=== PATIENT | female | born 1985 | race African-American/Black ===

== ENCOUNTER 2017-03-09 09:41 | Emergency (ER) | payer OTHER ==
[2017-03-09 10:25] LABS: URINE HCG POC HCG NEGATIVE (Negative)
[2017-03-09] MEDS: predniSONE 10 MG TABLET PO (10:35)
[2017-03-09 11:18] LABS: AGAP ISTAT 12 mmol/L (6-14); BUN ISTAT 14 mg/dL (8-26); CHLORIDE ISTAT 106 mmol/L (98-110); CREATININE ISTAT 1.1 mg/dL (0.5-1.4); GLUCOSE ISTAT 97 mg/dL (70-99); HEMATOCRIT ISTAT 39 % (36-40); HEMOGLOBIN ISTAT 13.3 g/dL (12-15); ION CA ISTAT 0.97 mmol/L (1.13-1.32); POTASSIUM ISTAT 5.1 mmol/L (3.5-5.0); SODIUM ISTAT 134 mmol/L (135-145); TOT CO2 ISTAT 22 mmol/L (23-32)
== END 2017-03-09 11:57 | disposition home or self-care (01) ==
LOC: ER 09:41
DX: M32.9 Systemic lupus erythematosus, unspecified (principal); E83.51 Hypocalcemia; M06.9 Rheumatoid arthritis, unspecified; Z98.890 Other specified postprocedural states
CPT/HCPCS: 36415; 80047; 81025; 85014; 85018; 99283-25; J7512

== ENCOUNTER 2017-12-07 15:50 | Emergency (ER) | payer OTHER ==
[~2017-12-07] VITALS: Ht 157.5 cm; Wt 81.6 kg
[~2017-12-07 15:50] MED LIST: CIPR500T94 PO; PRED-220 PO
[2017-12-07 16:34] VITALS: BP 126/83
--- NOTE | 2017-12-07 16:37 | PHYS DOC ---
Past Medical History Past Medical History: Arthritis, Other Additional Past Medical Histor: Lupus; RA Past Surgical History: , Other Additional Past Surgical Histo: laparoscopic surg nos, 2006 Alcohol Use: Occasionally Drug Use: None Adult General Chief Complaint Chief Complaint: SORE THROAT HPI HPI Patient is a 31 year old female who presents with patient states she awoke today with a sore throat and was hard to swallow. Patient denies fever or unusual body aches. Patient denies any recent illness or respiratory illness. Patient takes hydrochloride Antonio and naproxen daily for her lupus. Patient states she has no known drug allergies. Review of Systems Review of Systems Constitutional: Denies fever or chills [] Eyes: Denies change in visual acuity, redness, or eye pain [] HENT: Denies nasal congestion. Sore throat [] Respiratory: Denies cough or shortness of breath [] Cardiovascular: No additional information not addressed in HPI [] GI: Denies abdominal pain, nausea, vomiting, bloody stools or diarrhea [] : Denies dysuria or hematuria [] Musculoskeletal: Denies back pain or joint pain [] Integument: Denies rash or skin lesions [] Neurologic: Denies headache, focal weakness or sensory changes [] Endocrine: Denies polyuria or polydipsia [] All other systems were reviewed and found to be within normal limits, except as documented in this note. Allergies Allergies Allergies Coded Allergies Type Severity Reaction Last Updated Verified No Known Drug Allergies 05/05/13 No Physical Exam Physical Exam Constitutional: Well developed, well nourished, no acute distress, non-toxic appearance. [] HENT: Normocephalic, atraumatic, bilateral external ears normal, oropharynx moist, oral exudates present, nose normal. [] Eyes: PERRLA, EOMI, conjunctiva normal, no discharge. [] Neck: Normal range of motion, no tenderness, supple, no stridor. [] Cardiovascular:Heart rate regular rhythm, no murmur [] Lungs & Thorax: Bilateral breath sounds clear to auscultation [] Abdomen: Bowel sounds normal, soft, no tenderness, no masses, no pulsatile masses. [] Skin: Warm, dry, no erythema, no rash. [] Back: No tenderness, no CVA tenderness. [] Extremities: No tenderness, no cyanosis, no clubbing, ROM intact, no edema. [] Neurologic: Alert and oriented X 3, normal motor function, normal sensory function, no focal deficits noted. [] Psychologic: Affect normal, judgement normal, mood normal. [] EKG EKG [] Radiology/Procedures Radiology/Procedures [] Course & Med Decision Making Course & Med Decision Making Patient is a 31 year old female who presents with patient states she awoke today with a sore throat and was hard to swallow. Patient denies fever or unusual body aches. Patient denies any recent illness or respiratory illness. Patient takes hydrochloroquine and naproxen daily for her lupus. Patient states she has no known drug allergies. She denies fever, shortness of air, chest pain , nausea, vomiting, diarrhea, rhinorrhea, cough or ear pain. Patient is alert and oriented. Skin is pink warm and dry. Lungs are clear to auscultation all lobes. Heart rate regular and no murmur. Patient rates her pain 8 out of 10. Upon examination patient's throat is red and she has a white patch on her left tonsil. There is only slight swelling to her left tonsil. There are no palpable lymph nodes or masses felt in her neck. Bilateral tympanic membranes are pearly white. Rapid strep is negative. Sense I have seen the white patch on her left tonsil and her left tonsil is inflamed, I am still going to treat the patient for Strep. The Strep culture is sent. Dragon Disclaimer Dragon Disclaimer This electronic medical record was generated, in whole or in part, using a voice recognition dictation system. Departure Departure Impression: Primary Impression: Throat pain in adult Disposition: 01 HOME, SELF-CARE Condition: STABLE Referrals: CALLIE CADENA MD (PCP) Patient Instructions: Strep Throat Additional Instructions: Follow up with your primary care if you are not getting better. Scripts Amoxicillin (AMOXICILLIN) 500 Mg Capsule 1 CAP PO BID, #20 CAP Prov: DERRICK GARCIA RN PICU 12/07/17 DERRICK GARCIA RN PICU Dec 07, 2017 16:37
[2017-12-07] MEDS ORDERED: AMOX500C PO (16:48)
== END 2017-12-07 16:50 | disposition home or self-care (01) ==
LOC: ER 15:50
DX: R07.0 Pain in throat (principal)
CPT/HCPCS: 87070; 87880; 99284

== ENCOUNTER 2018-01-03 12:45 | Emergency (ER) | payer OTHER ==
[~2018-01-03] VITALS: Ht 157.5 cm; Wt 83.5 kg
[~2018-01-03 12:45] MED LIST changes: +AMOX500C PO
[2018-01-03 13:26] LABS: BILIRUBIN,URINE NEGATIVE (NEG); CLARITY,URINE CLOUDY; COLOR,URINE RED; NITRITE,URINE NEGATIVE (NEG); PH,URINE 5.5; PROTEIN,URINE 100 mg/dL (NEG-TRACE); UROBILINOGEN,URINE 0.2 mg/dL (0.2 mg/dL)
[2018-01-03 13:32] LABS: SQUAMOUS EPITHELIAL CELL,UR MANY /LPF
[2018-01-03 13:33] LABS: BACTERIA,URINE MODERATE /HPF (0-FEW); RBC,URINE >40 /HPF (0-2)
--- NOTE | 2018-01-03 14:47 | RAD ---
Transabdominal ultrasound the pelvis. HISTORY: Pelvic pain to the left. Transabdominal ultrasound was performed to evaluate the pelvis. The bladder was not well-distended. Uterus measured 8.67 x 4.8 x 5.3 cm and was normal in appearance. The endometrium was not thickened measuring 7 mm. The right ovary is at the posterior lateral margin of the uterus measuring 4.2 x 2 x 2 cm. There is a 3 x 1.7 cm cyst or follicle in the right ovary. Left ovary was normal measuring 2.9 x 1.7 x 2.1 cm. There is flow in both ovaries with color imaging and Doppler. IMPRESSION: 1. Right ovarian cyst or follicle. 2. Essentially normal ultrasound of the pelvis. Electronically signed by: Robert Garcia MD (01/03/2018 2:44 PM) [facility]
[2018-01-03 15:26] LABS: BASO % 1 % (0-3); EOS # 0.1 x10^3/uL (0.0-0.7); EOS % 2 % (0-3); HEMATOCRIT 36.7 % (36.0-47.0); HEMOGLOBIN 12.1 g/dL (12.0-15.5); LYMPH # 1.4 x10^3/uL (1.0-4.8); LYMPH % 32 % (24-48); MEAN CORPUSCULAR HEMOGLOBIN 25 pg (25-35); MEAN CORPUSCULAR HGB CONC 33 g/dL (31-37); MEAN CORPUSCULAR VOLUME 76 fL (79-100); MONO # 0.2 x10^3/uL (0.0-1.1); MONO % 4 % (0-9); NEUT # 2.7 x10^3uL (1.8-7.7); NEUT % 62 % (31-73); PLATELET COUNT 260 x10^3/uL (140-400); RED BLOOD COUNT 4.83 x10^6/uL (3.50-5.40); RED CELL DISTRIBUTION WIDTH 17.1 % (11.5-14.5); WHITE BLOOD COUNT 4.4 x10^3/uL (4.0-11.0)
[2018-01-03 15:37] LABS: GFR 76.8
[2018-01-03 15:42] LABS: ALBUMIN 3.8 g/dL (3.4-5.0); ALBUMIN/GLOBULIN RATIO 0.8 (1.0-1.7); TOTAL BILIRUBIN 0.6 mg/dL (0.2-1.0); TOTAL PROTEIN 8.8 g/dL (6.4-8.2)
[2018-01-03 16:04] VITALS: BP 130/76
[2018-01-03] MEDS ORDERED: NITR100C62 PO (16:10)
--- NOTE | 2018-01-03 16:11 | PHYS DOC ---
Past Medical History Past Medical History: Arthritis, Other Additional Past Medical Histor: Lupus; RA, Stomach ulcer, hernia Past Surgical History: , Other Additional Past Surgical Histo: laparoscopic surg nos, 2006 Alcohol Use: Occasionally Drug Use: None Adult General Chief Complaint Chief Complaint: ABDOMINAL PAIN [facility] HPI Patient is a 32 year old female who presents with dysuria and blood in her urine. The patient is also worried that she may be . She does have history of lupus and has had several miscarriages. She has been having some mild pelvic pain. She denies any exposure to STD. She denies abdominal pain or fever. She denies nausea or vomiting. Review of Systems Review of Systems Constitutional: Denies fever or chills [] Eyes: Denies change in visual acuity, redness, or eye pain [] HENT: Denies nasal congestion or sore throat [] Respiratory: Denies cough or shortness of breath [] Cardiovascular: No additional information not addressed in HPI [] GI: Denies abdominal pain, nausea, vomiting, bloody stools or diarrhea [] : See history of present illness Musculoskeletal: Denies back pain or joint pain [] Integument: Denies rash or skin lesions [] Neurologic: Denies headache, focal weakness or sensory changes [] Endocrine: Denies polyuria or polydipsia [] All other systems were reviewed and found to be within normal limits, except as documented in this note. Allergies Allergies Allergies Coded Allergies Type Severity Reaction Last Updated Verified No Known Drug Allergies 05/05/13 No Physical Exam Physical Exam Constitutional: Well developed, well nourished, no acute distress, non-toxic appearance. [] Cardiovascular:Heart rate regular rhythm, no murmur [] Lungs & Thorax: Bilateral breath sounds clear to auscultation [] Abdomen: Bowel sounds normal, soft, mild suprapubic tenderness, no masses, no pulsatile masses. [] Skin: Warm, dry, no erythema, no rash. [] Back: No tenderness, no CVA tenderness. [] Extremities: No tenderness, no cyanosis, no clubbing, ROM intact, no edema. [] Neurologic: Alert and oriented X 3, normal motor function, normal sensory function, no focal deficits noted. [] Psychologic: Affect normal, judgement normal, mood normal. [] Current Patient Data Vital Signs Vital Signs Date Time Temp Pulse Resp B/P (MAP) Pulse Ox O2 Delivery O2 Flow Rate FiO2 01/03/18 16:04 98.2 72 14 130/76 (94) 98 Room Air 98.2 Lab Values Laboratory Tests Test 01/03/18 12:55 01/03/18 13:07 01/03/18 15:15 Urine Collection Type Unknown Urine Color Red Urine Clarity Cloudy Urine pH 5.5 Urine Specific [place] 1.020 Urine Protein 100 mg/dL (NEG-TRACE) Urine Glucose (UA) Negative mg/dL (NEG) Urine Ketones (Stick) Trace mg/dL (NEG) Urine Blood Large (NEG) Urine Nitrite Negative (NEG) Urine Bilirubin Negative (NEG) Urine Urobilinogen Dipstick 0.2 mg/dL (0.2 mg/dL) Urine Leukocyte Esterase Small (NEG) Urine RBC >40 /HPF (0-2) Urine WBC 5-10 /HPF (0-4) Urine Squamous Epithelial Cells Many /LPF Urine Bacteria Moderate /HPF (0-FEW) POC Urine HCG, Qualitative Hcg positive (Negative) White Blood Count 4.4 x10^3/uL (4.0-11.0) Red Blood Count 4.83 x10^6/uL (3.50-5.40) Hemoglobin 12.1 g/dL (12.0-15.5) Hematocrit 36.7 % (36.0-47.0) Mean Corpuscular Volume 76 fL (79-100) L Mean Corpuscular Hemoglobin 25 pg (25-35) Mean Corpuscular Hemoglobin Concent 33 g/dL (31-37) Red Cell Distribution Width 17.1 % (11.5-14.5) H Platelet Count 260 x10^3/uL (140-400) Neutrophils (%) (Auto) 62 % (31-73) Lymphocytes (%) (Auto) 32 % (24-48) Monocytes (%) (Auto) 4 % (0-9) Eosinophils (%) (Auto) 2 % (0-3) Basophils (%) (Auto) 1 % (0-3) Neutrophils # (Auto) 2.7 x10^3uL (1.8-7.7) Lymphocytes # (Auto) 1.4 x10^3/uL (1.0-4.8) Monocytes # (Auto) 0.2 x10^3/uL (0.0-1.1) Eosinophils # (Auto) 0.1 x10^3/uL (0.0-0.7) Basophils # (Auto) 0.0 x10^3/uL (0.0-0.2) Maternal Serum HCG Beta Subunit 81 mIU/mL (0-5) H Sodium Level 136 mmol/L (136-145) Potassium Level 4.0 mmol/L (3.5-5.1) Chloride Level 100 mmol/L (98-107) Carbon Dioxide Level 22 mmol/L (21-32) Anion Gap 14 (6-14) Blood Urea Nitrogen 11 mg/dL (7-20) Creatinine 1.0 mg/dL (0.6-1.0) Estimated GFR (Cockcroft-Gault) 76.8 BUN/Creatinine Ratio 11 (6-20) Glucose Level 67 mg/dL (70-99) L Calcium Level 9.0 mg/dL (8.5-10.1) Total Bilirubin 0.6 mg/dL (0.2-1.0) Aspartate Amino Transferase (AST) 15 U/L (15-37) Alanine Aminotransferase (ALT) 10 U/L (14-59) L Alkaline Phosphatase 82 U/L (46-116) Total Protein 8.8 g/dL (6.4-8.2) H Albumin 3.8 g/dL (3.4-5.0) Albumin/Globulin Ratio 0.8 (1.0-1.7) L Laboratory Tests 01/03/18 15:15 Laboratory Tests 01/03/18 15:15 EKG EKG [] Radiology/Procedures Radiology/Procedures []PATIENT: [facility] LACCOUNT: [id number]#: [id number] : 1985 LOCATION: ER AGE: 32 SEX: F EXAM STATUS: REG ER ORD. PHYSICIAN: EMILY LI APRN REASON: pain to left PROCEDURE: PELVIS ULTRASOUND Transabdominal ultrasound the pelvis. HISTORY: Pelvic pain to the left. Transabdominal ultrasound was performed to evaluate the pelvis. The bladder was not well-distended. Uterus measured 8.67 x 4.8 x 5.3 cm and was normal in appearance. The endometrium was not thickened measuring 7 mm. The right ovary is at the posterior lateral margin of the uterus measuring 4.2 x 2 x 2 cm. There is a 3 x 1.7 cm cyst or follicle in the right ovary. Left ovary was normal measuring 2.9 x 1.7 x 2.1 cm. There is flow in both ovaries with color imaging and Doppler. IMPRESSION: 1. Right ovarian cyst or follicle. 2. Essentially normal ultrasound of the pelvis. Electronically signed by: Robert Garcia MD (01/03/2018 2:44 PM) [facility] DICTATED and SIGNED BY: ROBERT GARCIA MD DATE: 01/03/18 1439 Course & Med Decision Making Course & Med Decision Making Pertinent Labs and Imaging studies reviewed. (See chart for details) The patient's urine dip is positive for . Her beta Quant though is very low at 50. This would mean she has an incredibly new . No abnormality was found on ultrasound. She is to follow-up with obstetrics for further evaluation and serial testing. She is in agreement with this plan. She has been put on an antibiotic for a UTI. Dragon Disclaimer Dragon Disclaimer This electronic medical record was generated, in whole or in part, using a voice recognition dictation system. Departure Departure Impression: Primary Impression: Urinary tract infection Additional Impression: Disposition: 01 HOME, SELF-CARE Condition: STABLE Referrals: CALLIE CADENA MD (PCP) Patient Instructions: - First Trimester, [id number], Urinary Tract Infection Additional Instructions: Take the antibiotic as directed. Follow-up with obstetrics for further evaluation of your positive test. Scripts Nitrofurantoin Monohyd/M-Cryst (MACROBID 100 MG CAPSULE) 100 Mg Capsule 1 CAP PO BID for infection, #14 CAP Prov: EMILY LI APRN 01/03/18 Problem Qualifiers EMILY LI APRN Jan 03, 2018 16:11
== END 2018-01-03 16:17 | disposition home or self-care (01) ==
LOC: ER 12:45
DX: Z33.1 Pregnant state, incidental (principal); N39.0 Urinary tract infection, site not specified; Z98.890 Other specified postprocedural states
CPT/HCPCS: 36415; 76856; 80053; 81001; 81025; 84702; 85025; 87086; 99285-25

== ENCOUNTER 2018-05-23 17:06 | Emergency (ER) | payer OTHER ==
[~2018-05-23] VITALS: Ht 157.5 cm; Wt 89.8 kg
[~2018-05-23 17:06] MED LIST changes: +NITR100C62 PO
[2018-05-23 17:32] LABS: BILIRUBIN,URINE NEGATIVE (NEG); CLARITY,URINE CLOUDY; COLOR,URINE YELLOW; NITRITE,URINE NEGATIVE (NEG); PROTEIN,URINE 30 mg/dL (NEG-TRACE); UROBILINOGEN,URINE 0.2 mg/dL (0.2 mg/dL)
[2018-05-23 17:40] LABS: BACTERIA,URINE MANY /HPF (0-FEW); SQUAMOUS EPITHELIAL CELL,UR MANY /LPF
--- NOTE | 2018-05-23 17:42 | PHYS DOC ---
Past Medical History Past Medical History: Arthritis, Other Additional Past Medical Histor: Lupus; RA, Stomach ulcer, hernia Past Surgical History: , Other Additional Past Surgical Histo: laparoscopic surg nos, 2006 Alcohol Use: None Drug Use: None Adult General Chief Complaint Chief Complaint: DIZZY/LIGHT HEADED HPI HPI 32-year-old female presents to ER with complaints of intermittent dizziness and ongoing flu symptoms. Patient reports she was diagnosed with the flu on Friday and was started on Tamiflu, Phenergan, and Zofran ODT. Patient reports she is has generalized fatigue and weakness, chills, and N/V/D. she reports her young daughter also has flulike illness. She reports she had small amount of diarrhea yesterday denies episodes today. She denies any cough, chest pain, abdominal pain, headache, or recent falls or injury. LMP was 04/22/18 with clara ent reporting she has irregular menstrual cycles denies being on control. Patient states last week she did have small amount of spotting but reports menses was irregular for her. Patient is 4 para 2 reporting she had miscarriage last fall. Review of Systems Review of Systems Constitutional: Denies fever or chills. Reports generalized fatigue/weakness Eyes: Denies change in visual acuity, redness, or eye pain [] HENT: Denies nasal congestion or sore throat [] Respiratory: Denies cough or shortness of breath [] Cardiovascular: No additional information not addressed in HPI [] GI: Denies abdominal pain, bloody stools. Reports intermittent N/V/D : Denies dysuria or hematuria [] Musculoskeletal: Denies back pain or joint pain [] Integument: Denies rash or skin lesions [] Neurologic: Denies headache, focal weakness or sensory changes [] All other systems were reviewed and found to be within normal limits, except as documented in this note. Current Medications Current Medications Current Medications Medications (Trade) Dose Ordered Sig/Ken Start Time Stop Time Status Last Admin Dose Admin Ceftriaxone Sodium (Rocephin) 1 gm 1X ONCE 05/23/18 20:15 05/23/18 20:16 DC 05/23/18 20:34 1 GM Ondansetron HCl (Zofran) 4 mg 1X ONCE 05/23/18 17:45 05/23/18 17:46 DC 3/30/19 17:53 4 MG Sodium Chloride 1,000 ml @ 1,000 mls/hr 1X ONCE 05/23/18 20:15 05/23/18 21:14 DC 05/23/18 20:34 1,000 MLS/HR Allergies Allergies Allergies Coded Allergies Type Severity Reaction Last Updated Verified No Known Drug Allergies 05/05/13 No Physical Exam Physical Exam Constitutional: Well developed, well nourished, no acute distress, non-toxic appearance. [] HENT: Normocephalic, atraumatic, bilateral ears normal, mucous membranes pi nk/dry, nose normal. [] Eyes: Pupils equal, no nystagmus, conjunctiva normal, no discharge. [] Neck: Normal range of motion, no tenderness, supple, no stridor/gross adenopathy Cardiovascular: Heart rate regular rhythm, no murmur [] Lungs & Thorax: Bilateral breath sounds clear to auscultation. Resp. equal/nonlabored Abdomen: Bowel sounds normal, soft, no tenderness- no distention Skin: Warm, dry, no erythema, no rash. [] Back: No tenderness, no CVA tenderness. [] Extremities: No tenderness, no cyanosis, no clubbing, ROM intact, no edema. [] Neurologic: Alert and oriented X 3, normal motor function, normal sensory function, no focal deficits noted. Psychologic: Affect normal, judgement normal, mood normal. [] Current Patient Data Vital Signs Vital Signs Date Time Temp Pulse Resp B/P (MAP) Pulse Ox O2 Delivery O2 Flow Rate FiO2 05/23/18 23:24 61 14 100 05/23/18 17:15 98.2 140/76 (97) Room Air 98.2 Lab Values Laboratory Tests Test 05/23/18 17:23 05/23/18 17:24 05/23/18 18:01 05/23/18 19:05 Urine Collection Type Unknown Urine Color Yellow Urine Clarity Cloudy Urine pH 6.0 Urine Specific [place] 1.015 Urine Protein 30 mg/dL (NEG-TRACE) Urine Glucose (UA) Negative mg/dL (NEG) Urine Ketones (Stick) Negative mg/dL (NEG) Urine Blood Large (NEG) Urine Nitrite Negative (NEG) Urine Bilirubin Negative (NEG) Urine Urobilinogen Dipstick 0.2 mg/dL (0.2 mg/dL) Urine Leukocyte Esterase Moderate (NEG) Urine RBC 11-20 /HPF (0-2) Urine WBC 5-10 /HPF (0-4) Urine Squamous Epithelial Cells Many /LPF Urine Bacteria Many /HPF (0-FEW) POC Urine HCG, Qualitative Hcg positive (Negative) White Blood Count 3.2 x10^3/uL (4.0-11.0) L Red Blood Count 4.49 x10^6/uL (3.50-5.40) Hemoglobin 11.3 g/dL (12.0-15.5) L Hematocrit 34.0 % (36.0-47.0) L Mean Corpuscular Volume 76 fL (79-100) L Mean Corpuscular Hemoglobin 25 pg (25-35) Mean Corpuscular Hemoglobin Concent 33 g/dL (31-37) Red Cell Distribution Width 17.2 % (11.5-14.5) H Platelet Count 258 x10^3/uL (140-400) Neutrophils (%) (Auto) 63 % (31-73) Lymphocytes (%) (Auto) 29 % (24-48) Monocytes (%) (Auto) 5 % (0-9) Eosinophils (%) (Auto) 2 % (0-3) Basophils (%) (Auto) 1 % (0-3) Neutrophils # (Auto) 2.0 x10^3uL (1.8-7.7) Lymphocytes # (Auto) 0.9 x10^3/uL (1.0-4.8) L Monocytes # (Auto) 0.2 x10^3/uL (0.0-1.1) Eosinophils # (Auto) 0.1 x10^3/uL (0.0-0.7) Basophils # (Auto) 0.0 x10^3/uL (0.0-0.2) Maternal Serum HCG Beta Subunit 53960 mIU/mL (0-5) H Sodium Level 135 mmol/L (136-145) L Potassium Level 3.8 mmol/L (3.5-5.1) Chloride Level 98 mmol/L (98-107) Carbon Dioxide Level 23 mmol/L (21-32) Anion Gap 14 (6-14) Blood Urea Nitrogen 10 mg/dL (7-20) Creatinine 0.8 mg/dL (0.6-1.0) Estimated GFR (Cockcroft-Gault) 99.4 BUN/Creatinine Ratio 13 (6-20) Glucose Level 78 mg/dL (70-99) Calcium Level 9.0 mg/dL (8.5-10.1) Total Bilirubin 0.5 mg/dL (0.2-1.0) Aspartate Amino Transferase (AST) 12 U/L (15-37) L Alanine Aminotransferase (ALT) 9 U/L (14-59) L Alkaline Phosphatase 86 U/L (46-116) Total Protein 9.3 g/dL (6.4-8.2) H Albumin 3.5 g/dL (3.4-5.0) Albumin/Globulin Ratio 0.6 (1.0-1.7) L Lipase 136 U/L (73-393) Test 05/23/18 20:15 Chlamydia DNA Probe Negative (Negative) Neisseria gonorrhoeae DNA Probe Negative (Negative) Laboratory Tests 05/23/18 18:01 Laboratory Tests 05/23/18 19:05 Microbiology 05/23/18 Wet Prep - Final, Complete 05/23/18 Urine Culture - Final, Complete 05/23/18 Urine Culture Result 1 (TONIA) - Final, Complete EKG EKG [] Radiology/Procedures Radiology/Procedures Pelvic Exam: RN Augusto present 2009 Abdomen: Nontender External Genitalia: Normal Skin-no rash or lesions Speculum: Normal vaginal mucosa, cervical os closed. No active vaginal bleeding or clots in vaginal vault. Small amount thin white discharge- on swabs discharge appeared blood tinged. non-malodorous Bimanual: No adnexal masses-tender on palpation left adnexa no palpable mass. Nontender right side, No CMT PROCEDURE: OB <14 WKS W/TV Ultrasound obstetrics less than 14 weeks with transvaginal imaging. 05/23/2018 CLINICAL INDICATION: Dizziness, hematuria. COMPARISON: Ultrasound 01/03/2018 FINDINGS: Transabdominal and endovaginal images were obtained. Uterus measures 10.5 x 6.1 x 5.4 cm. The cervix is long and closed measuring 4.8 cm. There is an intrauterine gestational sac with eccentric yolk sac and pole measuring 6 mm consistent with estimated gestational age of 6 weeks and 3 days. heart rate is identified estimated at 120 bpm. Right ovary measures 2.1 x 1.7 x 1.3 cm with normal color Doppler imaging. Left ovary measures 3.5 x 2.5 x 2.6 cm with a thick-walled peripherally hypervascular hypoechoic structure measuring 2.4 x 2.6 x 1.2 cm, likely a corpus luteum. There is moderate complex fluid in the cul-de-sac with multiple thin internal septations and locules. IMPRESSION: 1. Single living intrauterine with estimated gestational age by ultrasound of 6 weeks 3 days. 2. Moderate multiloculated fluid in the cul-de-sac with multiple internal septations and debris and no evidence of internal vascularity. Differential considerations include peritoneal inclusion cyst, hemoperitoneum from ruptured cyst or mesenteric duplication cyst. Abscess is less likely. Hydrosalpinx is an additional consideration, though is somewhat atypical and less there is internal debris and septations within the fallopian tube. Close clinical follow-up and repeat ultrasound is recommended to assess for improvement or resolution. 3. Probable left corpus luteum. Electronically signed by: Analy Ceja MD (05/23/2018 10:08 PM) [facility] DICTATED and SIGNED BY: ANALY CEJA MD DATE: 05/23/182207 Course & Med Decision Making Course & Med Decision Making Pertinent Labs and Imaging studies reviewed. (See chart for details) 1999: Discussion had with patient regarding test results- pt's hCG quantitative is 37,325. 2134: Pt's blood type is B- and she reports she did have to have Rhogham with her prior pregnancies. With patient having blood-tinged discharge on her pelvic swabs and reports of spotting in the past week along with positive will administer Rhogham while in the ER. 2204: Spoke with radiologist regarding pt's US with report of single living intrauterine 6 weeks 3 days. Also he reports pt has moderate pelvic fluid and debris in pelvis which could be possible ruptured cyst. He reports no "swishing" of debris or vascular flow. He advised on need for f/u US. Pt's case and plan of care was discussed with Dr. cShultz. US results were discussed with pt. Pt on re-exam appears less fatigued and reports she is feeling better following flds/tx received. Discussed all test results- UA with UTI. WBCs at 3.2 which pt was dx'd with flu on Fri and has been on Tamiflu. With pt's sxs and UTI admission offered for further care/monitoring- following discussion on admission pt reports with improved sxs she is preferring home d/c with plans to f/u with her PARENT PARTNER. IV Rocephin ordered for UTI. Pt received IV flds. Wet mount suggestive of BV and so tx will be provided with d/c paperwork along with Rx for Keflex for UTI. Pt advised on importance and need to f/u with her PARENT PARTNER on Friday. Education provided on s&s to return to ER for and d/c instructions were discussed. Pt advised with concerns or worsening sxs she should return to ER- she verbalized understanding. VS have been stable and at time of d/c discussion pt was nontoxic and in no distress. She denied abd or lower back pain. Dragon Disclaimer Dragon Disclaimer This electronic medical record was generated, in whole or in part, using a voice recognition dictation system. Departure Departure Impression: Primary Impression: Additional Impressions: Nausea and vomiting during Flu Need for rhogam due to Rh negative mother Disposition: HOME, SELF-CARE Condition: STABLE Referrals: CALLIE CADENA MD (PCP) Patient Instructions: Nausea and Vomiting, , RhoGAM Additional Instructions: Drink plenty of fluids. It is important for you to follow-up Friday with your PARENT PARTNER doctor for reevaluation on need a repeat ultrasound and repeat lab work to check your blood count, level, and reexamine your abdomen with ultrasound. If symptoms worsen or with concerns and you are unable to get into your doctor return to the emergency department for reevaluation. Tylenol as needed for pain as directed on container. You received your Rhogam while in the Emergency Department. Scripts Cephalexin (KEFLEX) 500 Mg Capsule 1 CAP PO BID, #14 CAP 0 Refills Prov: MAURICIO CHESTER APRN 05/23/18 Metronidazole (METROGEL-VAGINAL) 70 Gm Gel.w.appl 1 APPFUL VG QHS for 5 Days, EACH 0 Refills Prov: MAURICIO CHESTER APRN 05/23/18 Problem Qualifiers MAURICIO CHESTER APRN May 23, 2018 17:42
[2018-05-23] MEDS ORDERED: IV NORMAL SALINE 1000ML BAG 1,000 ML IV ONE ×2 (17:45→20:15)
[2018-05-23] MEDS ORDERED: ONDANSETRON PF 4 MG/2 ML VIAL. IV ONE (17:45)
[2018-05-23 18:09] LABS: BASO % 1 % (0-3); EOS # 0.1 x10^3/uL (0.0-0.7); EOS % 2 % (0-3); HEMOGLOBIN 11.3 g/dL (12.0-15.5); LYMPH # 0.9 x10^3/uL (1.0-4.8); LYMPH % 29 % (24-48); MEAN CORPUSCULAR HEMOGLOBIN 25 pg (25-35); MEAN CORPUSCULAR HGB CONC 33 g/dL (31-37); MEAN CORPUSCULAR VOLUME 76 fL (79-100); MONO # 0.2 x10^3/uL (0.0-1.1); MONO % 5 % (0-9); NEUT % 63 % (31-73); PLATELET COUNT 258 x10^3/uL (140-400); RED BLOOD COUNT 4.49 x10^6/uL (3.50-5.40); RED CELL DISTRIBUTION WIDTH 17.2 % (11.5-14.5); WHITE BLOOD COUNT 3.2 x10^3/uL (4.0-11.0)
[2018-05-23] MEDS ORDERED: cefTRIAXone IV Push 1 GM VIAL. IVP ONE (20:15)
[2018-05-23 21:30] LABS: CREATININE 0.8 mg/dL (0.6-1.0); GFR 99.4; POTASSIUM 3.8 mmol/L (3.5-5.1)
[2018-05-23 21:35] LABS: ALBUMIN 3.5 g/dL (3.4-5.0); ALBUMIN/GLOBULIN RATIO 0.6 (1.0-1.7); TOTAL BILIRUBIN 0.5 mg/dL (0.2-1.0); TOTAL PROTEIN 9.3 g/dL (6.4-8.2)
--- NOTE | 2018-05-23 22:11 | RAD ---
Ultrasound obstetrics less than 14 weeks with transvaginal imaging. 05/23/2018 CLINICAL INDICATION: Dizziness, hematuria. COMPARISON: Ultrasound 01/03/2018 FINDINGS: Transabdominal and endovaginal images were obtained. Uterus measures 10.5 x 6.1 x 5.4 cm. The cervix is long and closed measuring 4.8 cm. There is an intrauterine gestational sac with eccentric yolk sac and pole measuring 6 mm consistent with estimated gestational age of 6 weeks and 3 days. heart rate is identified estimated at 120 bpm. Right ovary measures 2.1 x 1.7 x 1.3 cm with normal color Doppler imaging. Left ovary measures 3.5 x 2.5 x 2.6 cm with a thick-walled peripherally hypervascular hypoechoic structure measuring 2.4 x 2.6 x 1.2 cm, likely a corpus luteum. There is moderate complex fluid in the cul-de-sac with multiple thin internal septations and locules. IMPRESSION: 1. Single living intrauterine with estimated gestational age by ultrasound of 6 weeks 3 days. 2. Moderate multiloculated fluid in the cul-de-sac with multiple internal septations and debris and no evidence of internal vascularity. Differential considerations include peritoneal inclusion cyst, hemoperitoneum from ruptured cyst or mesenteric duplication cyst. Abscess is less likely. Hydrosalpinx is an additional consideration, though is somewhat atypical and less there is internal debris and septations within the fallopian tube. Close clinical follow-up and repeat ultrasound is recommended to assess for improvement or resolution. 3. Probable left corpus luteum. Electronically signed by: Igor Ceja MD (05/23/2018 10:08 PM) [facility]
[2018-05-23] MEDS ORDERED: METR70GE14 VG (23:14)
[2018-05-23] MEDS ORDERED: CEPH-264 PO (23:14)
[2018-05-23 23:24] VITALS: BP 119/71
[2018-05-25 20:10] LABS: GC PROBE Negative (Negative)
== END 2018-05-23 23:35 | disposition home or self-care (01) ==
LOC: ER 17:06
DX: O21.9 Vomiting of pregnancy, unspecified (principal); J11.1 Influenza due to unidentified influenza virus with other respiratory manifestations; R42 Dizziness and giddiness; R19.7 Diarrhea, unspecified; R53.83 Other fatigue
CPT/HCPCS: 36415; 36430; 76801; 76817; 80053; 81001; 81025; 83690; 84702; 85025; 86850; 86900; 86901; 87086; 87491; 87591; 96361; 96374; 96375; 99285; J0696; J2405; J2791; J7030; Q0111

== ENCOUNTER 2018-05-25 15:08 | Emergency (ER) | payer OTHER ==
[~2018-05-25] VITALS: Ht 160 cm; Wt 87.3 kg
[~2018-05-25 15:08] MED LIST changes: +CEPH-264 PO; +METR70GE14 VG
[2018-05-25 15:39] LABS: BILIRUBIN,URINE NEGATIVE (NEG); CLARITY,URINE CLEAR; COLOR,URINE YELLOW; NITRITE,URINE NEGATIVE (NEG); PROTEIN,URINE 30 mg/dL (NEG-TRACE); UROBILINOGEN,URINE 0.2 mg/dL (0.2 mg/dL)
[2018-05-25 15:43] LABS: RBC,URINE >40 /HPF (0-2); SQUAMOUS EPITHELIAL CELL,UR FEW /LPF
[2018-05-25 15:44] LABS: BACTERIA,URINE FEW /HPF (0-FEW)
[2018-05-25] MEDS ORDERED: IV NORMAL SALINE 1000ML BAG 1,000 ML IV ONE (15:45)
[2018-05-25] MEDS ORDERED: PROCHLORPERAZINE 10 MG/2 ML VIAL. IV ONE (15:45)
[2018-05-25 17:00] LABS: BASO % 1 % (0-3); EOS % 1 % (0-3); HEMATOCRIT 34.2 % (36.0-47.0); HEMOGLOBIN 11.2 g/dL (12.0-15.5); LYMPH # 1.2 x10^3/uL (1.0-4.8); LYMPH % 30 % (24-48); MEAN CORPUSCULAR HEMOGLOBIN 25 pg (25-35); MEAN CORPUSCULAR HGB CONC 33 g/dL (31-37); MEAN CORPUSCULAR VOLUME 76 fL (79-100); MONO # 0.3 x10^3/uL (0.0-1.1); MONO % 8 % (0-9); NEUT # 2.6 x10^3uL (1.8-7.7); NEUT % 62 % (31-73); PLATELET COUNT 244 x10^3/uL (140-400); RED BLOOD COUNT 4.51 x10^6/uL (3.50-5.40); RED CELL DISTRIBUTION WIDTH 16.3 % (11.5-14.5); WHITE BLOOD COUNT 4.1 x10^3/uL (4.0-11.0)
--- NOTE | 2018-05-25 17:00 | RAD ---
EXAM: Obstetrics sonogram. HISTORY: Vaginal bleeding. TECHNIQUE: Sonographic imaging of a gravid uterus was performed. COMPARISON: 05/23/2018. FINDINGS: There is a single intrauterine gestational sac with pole and yolk sac. The crown-rump length is 0.76 cm, corresponding with a gestational age of 6 weeks and 5 days. The GLORIA based on ultrasound measurements is 01/13/2019. The heart rate is 120 bpm. The gestational sac is normal in position and configuration. No subchorionic hematoma is seen. There is a complex fluid collection containing internal septations or a multicystic lesion within the cul-de-sac measuring 7.3 cm in maximum dimension. The largest cystic component or loculation measures 2.1 cm. The ovaries are normal in size. There is a 2.0 cm suspected left corpus luteum cyst. IMPRESSION: 1. Single intrauterine fetus with an estimated gestational age based on a crown-rump length measurement 6 weeks and 5 days and heart rate of 120 bpm. There has been appropriate interval growth compared to the prior study performed 2 days prior. 2. Complex fluid collection containing septations or a complex multicystic lesion within the cul-de-sac measuring 7.3 cm in maximum dimension. This is similar compared to the prior study. The differential includes etiologies such as a complex peritoneal inclusion cyst, hemoperitoneum from a prior ruptured cyst and mesenteric duplication cyst. The possibility of hydrosalpinx with superinfection or pelvic abscess is not favored given no associated reported patient symptomatology. Continued follow-up is recommended. 3. Suspected left corpus luteum cyst. Electronically signed by: Ariella Park MD (05/25/2018 4:57 PM) [id number]
[2018-05-25 17:08] LABS: CALCIUM 8.7 mg/dL (8.5-10.1); CREATININE 0.8 mg/dL (0.6-1.0); GFR 99.4; POTASSIUM 4.7 mmol/L (3.5-5.1)
[2018-05-25 17:14] LABS: ALBUMIN 3.1 g/dL (3.4-5.0); ALBUMIN/GLOBULIN RATIO 0.6 (1.0-1.7); TOTAL BILIRUBIN 0.5 mg/dL (0.2-1.0); TOTAL PROTEIN 8.4 g/dL (6.4-8.2)
--- NOTE | 2018-05-25 18:12 | PHYS DOC ---
Past Medical History Past Medical History: Arthritis, Other Additional Past Medical Histor: Lupus; RA, Stomach ulcer, hernia (VALENTE SOLER APRN) Past Surgical History: , Other Additional Past Surgical Histo: laparoscopic surg nos, 2006 (VALENTE SOLER APRN) Alcohol Use: None Additional Information: OCC ALCOHOL PRIOR TO Drug Use: None (VALENTE SOLER APRN) Adult General Chief Complaint Chief Complaint: VOMITING IN HPI HPI Patient is a 32 year old female 5 para 2 currently 6 weeks presenting to the ED today with nausea, vomiting, symptoms began last week. Also complaining of vaginal spotting that began on Friday. She states the spotting only occurs when she wipes herself. Patient states she was seen by her own PCP on Friday last week, was diagnosed with influenza A and B. She was discharged home with promethazine, Tamiflu, Flagyl. She states her symptoms did not improve, she came to the ED on Friday to be evaluated for vaginal spotting. She states the spotting has continued since Friday. Patient denies any abdominal pain. She states she has continued to have nausea and vomiting. She states the nausea medication she was given which is promethazine is not helping. She states she has identified a new CERTIFIED NURSING ASSISTANT INSTRUCTOR and will be seeing her soon. Denies any fever. Denies any urgency frequency dysuria. (VALENTE SOLRE APRN) Review of Systems Review of Systems Constitutional: Denies fever or chills [] Eyes: Denies change in visual acuity, redness, or eye pain [] HENT: Denies nasal congestion or sore throat [] Respiratory: Denies cough or shortness of breath [] Cardiovascular: No additional information not addressed in HPI [] GI: Reports vaginal spotting, reports nausea and vomiting. Denies abdominal pain , bloody stools or diarrhea [] : Denies dysuria or hematuria [] Musculoskeletal: Denies back pain or joint pain [] Integument: Denies rash or skin lesions [] Neurologic: Denies headache, focal weakness or sensory changes [] All other systems were reviewed and found to be within normal limits, except as documented in this note. (VALENTE SOLER APRN) Current Medications Current Medications Current Medications Medications (Trade) Dose Ordered Sig/Ken Start Time Stop Time Status Last Admin Dose Admin Prochlorperazine Edisylate (Compazine) 10 mg 1X ONCE 05/25/18 15:45 05/25/18 15:46 DC 05/25/18 16:51 10 MG Sodium Chloride 1,000 ml @ 1,000 mls/hr 1X ONCE 05/25/18 15:45 05/25/18 16:44 DC 05/25/18 16:51 1,000 MLS/HR (FRANKIE ESTES DO) Allergies Allergies Allergies Coded Allergies Type Severity Reaction Last Updated Verified No Known Drug Allergies 05/05/13 No (FRANKIE ESTES DO) Physical Exam Physical Exam Constitutional: Well developed, well nourished, no acute distress, non-toxic appearance. [] HENT: Normocephalic, atraumatic, bilateral external ears normal, oropharynx moist, no oral exudates, nose normal. [] Eyes: PERRLA, EOMI, conjunctiva normal, no discharge. [] Neck: Normal range of motion, no tenderness, supple, no stridor. [] Cardiovascular:Heart rate regular rhythm, no murmur [] Lungs & Thorax: Bilateral breath sounds clear to auscultation [] Abdomen: Bowel sounds normal, soft, no tenderness, no masses, no pulsatile masses. [] Pelvic exam External pelvic appears normal cervix is visualized, closed, trace amount of pinkish blood in the vaginal vault. No CMT, no adnexal tenderness. Skin: Warm, dry, no erythema, no rash. [] Back: No tenderness, no CVA tenderness. [] Extremities: No tenderness, no cyanosis, no clubbing, ROM intact, no edema. [] Neurologic: Alert and oriented X 3, normal motor function, normal sensory function, no focal deficits noted. [] Psychologic: Affect normal, judgement normal, mood normal. [] (VALENTE SOLER APRN) Current Patient Data Vital Signs Vital Signs Date Time Temp Pulse Resp B/P (MAP) Pulse Ox O2 Delivery O2 Flow Rate FiO2 05/25/18 18:30 61 16 126/74 (91) 99 Room Air 05/25/18 15:25 99.2 99.2 (FRANKIE ESTES DO) Lab Values Laboratory Tests Test 05/25/18 15:20 05/25/18 16:47 Urine Collection Type Unknown Urine Color Yellow Urine Clarity Clear Urine pH 6.0 Urine Specific Red [place] 1.015 Urine Protein 30 mg/dL (NEG-TRACE) Urine Glucose (UA) Negative mg/dL (NEG) Urine Ketones (Stick) >=80 mg/dL (NEG) Urine Blood Large (NEG) Urine Nitrite Negative (NEG) Urine Bilirubin Negative (NEG) Urine Urobilinogen Dipstick 0.2 mg/dL (0.2 mg/dL) Urine Leukocyte Esterase Negative (NEG) Urine RBC >40 /HPF (0-2) Urine WBC 1-4 /HPF (0-4) Urine Squamous Epithelial Cells Few /LPF Urine Bacteria Few /HPF (0-FEW) Urine Mucus Slight /LPF White Blood Count 4.1 x10^3/uL (4.0-11.0) Red Blood Count 4.51 x10^6/uL (3.50-5.40) Hemoglobin 11.2 g/dL (12.0-15.5) L Hematocrit 34.2 % (36.0-47.0) L Mean Corpuscular Volume 76 fL (79-100) L Mean Corpuscular Hemoglobin 25 pg (25-35) Mean Corpuscular Hemoglobin Concent 33 g/dL (31-37) Red Cell Distribution Width 16.3 % (11.5-14.5) H Platelet Count 244 x10^3/uL (140-400) Neutrophils (%) (Auto) 62 % (31-73) Lymphocytes (%) (Auto) 30 % (24-48) Monocytes (%) (Auto) 8 % (0-9) Eosinophils (%) (Auto) 1 % (0-3) Basophils (%) (Auto) 1 % (0-3) Neutrophils # (Auto) 2.6 x10^3uL (1.8-7.7) Lymphocytes # (Auto) 1.2 x10^3/uL (1.0-4.8) Monocytes # (Auto) 0.3 x10^3/uL (0.0-1.1) Eosinophils # (Auto) 0.0 x10^3/uL (0.0-0.7) Basophils # (Auto) 0.0 x10^3/uL (0.0-0.2) Maternal Serum HCG Beta Subunit 08833 mIU/mL (0-5) H Sodium Level 132 mmol/L (136-145) L Potassium Level 4.7 mmol/L (3.5-5.1) Chloride Level 98 mmol/L (98-107) Carbon Dioxide Level 22 mmol/L (21-32) Anion Gap 12 (6-14) Blood Urea Nitrogen 12 mg/dL (7-20) Creatinine 0.8 mg/dL (0.6-1.0) Estimated GFR (Cockcroft-Gault) 99.4 BUN/Creatinine Ratio 15 (6-20) Glucose Level 77 mg/dL (70-99) Calcium Level 8.7 mg/dL (8.5-10.1) Total Bilirubin 0.5 mg/dL (0.2-1.0) Aspartate Amino Transferase (AST) 17 U/L (15-37) Alanine Aminotransferase (ALT) 8 U/L (14-59) L Alkaline Phosphatase 75 U/L (46-116) Total Protein 8.4 g/dL (6.4-8.2) H Albumin 3.1 g/dL (3.4-5.0) L Albumin/Globulin Ratio 0.6 (1.0-1.7) L Laboratory Tests 05/25/18 16:47 Laboratory Tests 05/25/18 16:47 (FRANKIE ESTES DO) EKG EKG [] (VALENTE SOLER APRN) Radiology/Procedures Radiology/Procedures []PROCEDURE: OB <14 WKS W/TV EXAM: Obstetrics sonogram. HISTORY: Vaginal bleeding. TECHNIQUE: Sonographic imaging of a gravid uterus was performed. COMPARISON: 05/23/2018. FINDINGS: There is a single intrauterine gestational sac with pole and yolk sac. The crown-rump length is 0.76 cm, corresponding with a gestational age of 6 weeks and 5 days. The GLORIA based on ultrasound measurements is 01/13/2019. The heart rate is 120 bpm. The gestational sac is normal in position and configuration. No subchorionic hematoma is seen. There is a complex fluid collection containing internal septations or a multicystic lesion within the cul-de-sac measuring 7.3 cm in maximum dimension. The largest cystic component or loculation measures 2.1 cm. The ovaries are normal in size. There is a 2.0 cm suspected left corpus luteum cyst. IMPRESSION: 1. Single intrauterine fetus with an estimated gestational age based on a crown-rump length measurement 6 weeks and 5 days and heart rate of 120 bpm. There has been appropriate interval growth compared to the prior study performed 2 days prior. 2. Complex fluid collection containing septations or a complex multicystic lesion within the cul-de-sac measuring 7.3 cm in maximum dimension. This is similar compared to the prior study. The differential includes etiologies such as a complex peritoneal inclusion cyst, hemoperitoneum from a prior ruptured cyst and mesenteric duplication cyst. The possibility of hydrosalpinx with superinfection or pelvic abscess is not favored given no associated reported patient symptomatology. Continued follow-up is recommended. 3. Suspected left corpus luteum cyst. Electronically signed by: Ariella Sol MD (05/25/2018 4:57 PM) [id number] DICTATED and SIGNED BY: ARIELLA SOL MD DATE: 05/25/18 9374 (VALENTE SOLER APRN) Course & Med Decision Making Course & Med Decision Making Pertinent Labs and Imaging studies reviewed. (See chart for details) This is a 32-year-old female patient presenting to the ED today with multiple complaints. Patient is complaining of nausea and vomiting that began last week. Was diagnosed with influenza A and B and was put on Tamiflu and promethazine. She has continued to have nausea and vomiting. She was seen in the ED on Friday for vaginal spotting which has continued. On physical exam/pelvic exam she had trace amount of pinkish drainage in the vaginal vault. Urine analysis is negative for infection, noted for ketones greater than 80, 30 of protein, large amount of blood. CBC with a normal WBC, hemoglobin 11.2, hematocrit 34.2. Beta hCG 47,287 up from Friday which was 37,385. Patient was given IV fluids, nausea medicine. Feeling better. Blood group B- done 3 days ago, patient was given Rhogham injection 3 days ago OB ultrasound noted for-Single intrauterine fetus with an estimated gestational age based on a crown-rump length measurement 6 weeks and 5 days and heart rate of 120 bpm. There has been appropriate interval growth compared to the prior study performed 2 days prior. Complex fluid collection containing septations or a complex multicystic lesion within the cul-de-sac measuring 7.3 cm in maximum dimension. This is similar compared to the prior study. The differential includes etiologies such as a complex peritoneal inclusion cyst, hemoperitoneum from a prior ruptured cyst and mesenteric duplication cyst. The possibility of hydrosalpinx with superinfection or pelvic abscess is not favored given no associated reported patient symptomatology. Continued follow- up is recommended.Suspected left corpus luteum cyst. I spoke to patient about her ultrasound results, she states she has an appointment with her CERTIFIED NURSING ASSISTANT INSTRUCTOR for follow-up, she states she was unaware of the complex fluid collection in her cul-de-sac, radiologist as stated request frequent follow-up for this. Patient was discharged with Compazine and ODT Zofran. Follow-up with her CERTIFIED NURSING ASSISTANT INSTRUCTOR as soon as possible (VALENTE SOLER APRN) Dragon Disclaimer Dragon Disclaimer This electronic medical record was generated, in whole or in part, using a voice recognition dictation system. (VALENTE SOLER APRN) Departure Departure Impression: Primary Impression: Threatened miscarriage Additional Impression: Hyperemesis gravidarum Disposition: HOME, SELF-CARE Condition: STABLE Referrals: CALLIE CADENA MD (PCP) Please follow-up with your CERTIFIED NURSING ASSISTANT INSTRUCTOR in the course of next week or this week. Patient Instructions: Diet - Hyperemesis Gravidarum, Hyperemesis Gravidarum, Threatened Miscarriage, [id number] Additional Instructions: You were evaluated in the emergency room. We encourage you to alternate your nausea and vomiting medications to see if that would alleviate the symptoms. Please follow-up with your CERTIFIED NURSING ASSISTANT INSTRUCTOR as soon as he can. Push fluids, maintain pelvic rest including no sex, no extraneous activities. Scripts Prochlorperazine Maleate (Compazine) 10 Mg Tablet 10 MG PO q8 PRN for NAUSEA/VOMITING, #30 TAB Prov: VALENTE SOLER APRN 05/25/18 Ondansetron (ONDANSETRON ODT) 4 Mg Tab.rapdis 1 TAB PO PRN Q6-8HRS, #30 TAB Prov: VALENTE SOLER APRN 05/25/18 Attending Signature Attending Signature I have reviewed the PA/EXECUTIVE HOUSEKEEPER's note and plan of care. I was available for consultation as needed during the patient's visit in the emergency department. I agree with the clinical impression, plan, and disposition. (FRANKIE ESTES DO) Problem Qualifiers VALENTE SOLER APRN May 25, 2018 18:11 FRANKIE ESTES DO Jun 14, 2018 12:14
[2018-05-25] MEDS ORDERED: ONDA4TAB12 PO (18:23)
[2018-05-25] MEDS ORDERED: PROC10TA57 PO (18:23)
[2018-05-25 18:30] VITALS: BP 126/74
== END 2018-05-25 18:45 | disposition home or self-care (01) ==
LOC: ER 15:08
DX: O21.0 Mild hyperemesis gravidarum (principal); O20.0 Threatened abortion; Z3A.01 Less than 8 weeks gestation of pregnancy
CPT/HCPCS: 36415; 76801; 76817; 80053; 81001; 84702; 85025; 96361; 96374; 99284; J0780; J7030

== ENCOUNTER 2018-12-16 18:00 | Emergency (ER) | payer OTHER ==
[~2018-12-16] VITALS: Ht 157.5 cm; Wt 90.7 kg
[~2018-12-16 18:00] MED LIST changes: +ONDA4TAB12 PO; +PROC10TA57 PO
[2018-12-16 18:13] VITALS: BP 143/78
--- NOTE | 2018-12-16 18:20 | PHYS DOC ---
Past Medical History Past Medical History: Arthritis, Other Additional Past Medical Histor: Lupus; RA, Stomach ulcer, hernia Past Surgical History: , Other Additional Past Surgical Histo: laparoscopic surg nos, 2006 Alcohol Use: None Drug Use: None Adult General Chief Complaint Chief Complaint: EYE PROBLEMS HPI HPI Patient is a 33 year old female who presents with 4 days of Right eye irritation and the feeling that "something is in the eye". Patient denies injury or remembering anything getting in her eye. Denies visual changes. Patient rates her irritation at a 4/10. Patient states this morning she noticed clear drainage in the corner of her eye. Review of Systems Review of Systems Eyes: Denies change in visual acuity. conjunctiva redness, eye irritation pain [] All other systems were reviewed and found to be within normal limits, except as documented in this note. Current Medications Current Medications Current Medications Medications (Trade) Dose Ordered Sig/Ken Start Time Stop Time Status Last Admin Dose Admin Fluorescein Sodium (Ful-Cnadie) 1 strip 1X ONCE 12/16/18 18:30 12/16/18 18:31 DC 12/16/18 18:30 1 STRIP Tetracaine HCl (Tetracaine) 1 drop 1X ONCE 12/16/18 18:30 12/16/18 18:31 DC 12/16/18 18:30 1 DROP Allergies Allergies Allergies Coded Allergies Type Severity Reaction Last Updated Verified No Known Drug Allergies 05/05/13 No Physical Exam Physical Exam Constitutional: Well developed, well nourished, no acute distress, non-toxic appearance. [] HENT: Normocephalic, atraumatic, bilateral external ears normal, oropharynx moist, no oral exudates, nose normal. [] Eyes: PERRLA, EOMI, conjunctiva red, no discharge. [] Skin: Warm, dry, no erythema, no rash. [] Neurologic: Alert and oriented X 3, normal motor function, normal sensory function, no focal deficits noted. [] Psychologic: Affect normal, judgement normal, mood normal. [] Current Patient Data Vital Signs Vital Signs Date Time Temp Pulse Resp B/P (MAP) Pulse Ox O2 Delivery O2 Flow Rate FiO2 12/16/18 18:13 98.5 91 14 143/78 (99) 94 Room Air 98.5 EKG EKG [] Radiology/Procedures Radiology/Procedures [] Course & Med Decision Making Course & Med Decision Making No swelling to the eye. Denies photophobia. Conjunctivae is reddened. PERRLA. Skin pink warm and dry. Ambulatory with steady gait. There is no drainage seen to the eye. Patient states she has been using Visine drops for dry eyes. Eye Exam w/ slit lamp: Visual Acuity: L 20/15, R 20/20, B 20/20 Visual Baird: Intact in all four quadrants bilaterally Lac ducts/glands: No swelling Lids w/ evertion: Normal, no foreign body Conj/[place]: Red, positive Fluorescein/Radha's- Lateral corneal abrasion Anterior Chamber: Clear Tonopen readings: Retina exam: No obvious abnormality Dragon Disclaimer Dragon Disclaimer This electronic medical record was generated, in whole or in part, using a voice recognition dictation system. Departure Departure Impression: Primary Impression: Corneal abrasion Disposition: HOME, SELF-CARE Condition: STABLE Referrals: CALLIE CADENA MD (PCP) Britt PATRICIO MD Patient Instructions: Eye - Corneal Abrasion Additional Instructions: Follow up with primary care physician or a Eye doctor which I have referred you too. Scripts Erythromycin Base (Erythromycin) 1 Gm Oint...g. 1 GM OP Q4HRS for 7 Days, #[address] 0[address]5CM RIBBON TO EYE Prov: DERRICK GARCIA APRN 12/16/18 Problem Qualifiers Primary Impression: Corneal abrasion Encounter type: initial encounter Laterality: right Qualified Codes: S05.01XA - Injury of conjunctiva and corneal abrasion without foreign body, right eye, initial encounter DERRICK GARCIA APRN Dec 16, 2018 18:20
[2018-12-16] MEDS ORDERED: FLUORESCEIN OPHTH TEST STRIP. OD ONE (18:30)
[2018-12-16] MEDS ORDERED: TETRACAINE 0.5% OPHTH SOLUTION 4ML BOTTLE. OD ONE (18:30)
[2018-12-16] MEDS ORDERED: ERYT1OIN6 OP (18:35)
== END 2018-12-16 18:43 | disposition home or self-care (01) ==
LOC: ER 18:00
DX: S05.01XA Injury of conjunctiva and corneal abrasion without foreign body, right eye, initial encounter (principal); X58.XXXA Exposure to other specified factors, initial encounter; Y93.89 Activity, other specified; Y92.89 Other specified places as the place of occurrence of the external cause; Y99.8 Other external cause status
CPT/HCPCS: 99283

== ENCOUNTER 2018-12-25 20:39 | Emergency (ER) | payer OTHER ==
[~2018-12-25] VITALS: Ht 160 cm; Wt 90.7 kg
[~2018-12-25 20:39] MED LIST changes: +ERYT1OIN6 OP
[2018-12-25 21:10] LABS: BILIRUBIN,URINE SMALL (NEG); CLARITY,URINE CLOUDY; COLOR,URINE AMBER; NITRITE,URINE NEGATIVE (NEG); PH,URINE 5.5; PROTEIN,URINE 100 mg/dL (NEG-TRACE)
[2018-12-25 21:17] LABS: BACTERIA,URINE MODERATE /HPF (0-FEW); BARBITURATES NEG (NEG); BENZODIAZEPINES NEG (NEG); CANNABINOIDS POS (NEG); COCAINE NEG (NEG); METHADONE NEG (NEG); OPIATES NEG (NEG); PHENCYCLIDINE NEG (NEG)
[2018-12-25 21:18] LABS: AMPHETAMINE/METHAMPHETAMINE NEG (NEG); SQUAMOUS EPITHELIAL CELL,UR MOD /LPF
[2018-12-25] MEDS ORDERED: ONDA4TAB12 PO (21:20)
--- NOTE | 2018-12-25 21:21 | PHYS DOC ---
Past Medical History Past Medical History: Arthritis, Other Additional Past Medical Histor: Lupus; RA, Stomach ulcer, hernia (DERRICK GARCIA APRN) Past Surgical History: , Other Additional Past Surgical Histo: laparoscopic surg nos, 2006 (DERRICK GARCIA APRN) Alcohol Use: None Drug Use: None (DERRICK GARCIA APRN) Attending Signature I have participated in the care of this patient and I have reviewed and agree with all pertinent clinical information above including history, exam, and re commendations. (ENDER PETERSON MD) Adult General Chief Complaint Chief Complaint: NAUSEA/VOMITING/DIARRHA HPI HPI Patient is a 33 year old female who presents with last menstrual period in October for the last 5 days she's been having nausea and vomiting throughout the day. Patient states she's not been able to keep down her lupus medications. Patient denies any pain, vaginal bleeding, vaginal discharge, dizziness, headache, chest pain, soa, numbness or tingling, visual changes. (DERRICK GARCIA APRN) Review of Systems Review of Systems GI: Denies abdominal pain, +nausea, +vomiting, denies bloody stools or diarrhea [] All other systems were reviewed and found to be within normal limits, except as documented in this note. (DERRICK GARCIA APRN) Current Medications Current Medications Current Medications Medications (Trade) Dose Ordered Sig/Ken Start Time Stop Time Status Last Admin Dose Admin Ondansetron HCl (Zofran) 4 mg 1X ONCE 12/25/18 21:30 12/25/18 21:31 DC 12/25/18 22:07 4 MG Sodium Chloride 1,000 ml @ 1,000 mls/hr 1X ONCE 12/25/18 21:30 12/25/18 22:29 DC 12/25/18 22:09 1,000 MLS/HR (ENDER PETERSON MD) Allergies Allergies Allergies Coded Allergies Type Severity Reaction Last Updated Verified No Known Drug Allergies 05/05/13 No (ENDER PETERSON MD) Physical Exam Physical Exam Constitutional: Well developed, well nourished, no acute distress, non-toxic ap pearance. [] HENT: Normocephalic, atraumatic, bilateral external ears normal, oropharynx moist, no oral exudates, nose normal. [] Eyes: PERRLA, EOMI, conjunctiva normal, no discharge. [] Neck: Normal range of motion, no tenderness, supple, no stridor. [] Cardiovascular:Heart rate regular rhythm, no murmur [] Lungs & Thorax: Bilateral breath sounds clear to auscultation [] Abdomen: Bowel sounds normal, soft, no tenderness, no masses, no pulsatile masses. [] Skin: Warm, dry, no erythema, no rash. [] Back: No tenderness, no CVA tenderness. [] Extremities: No tenderness, no cyanosis, no clubbing, ROM intact, no edema. [] Neurologic: Alert and oriented X 3, normal motor function, normal sensory function, no focal deficits noted. [] Psychologic: Affect normal, judgement normal, mood normal. Normal Physical Exam[] (DERRICK GARCIA APRN) Current Patient Data Vital Signs Vital Signs Date Time Temp Pulse Resp B/P (MAP) Pulse Ox O2 Delivery O2 Flow Rate FiO2 12/25/18 22:30 65 20 118/70 (86) 100 Room Air 12/25/18 20:58 97.8 97.8 (ENDER PETERSON MD) Lab Values Laboratory Tests Test 12/25/18 20:40 12/25/18 20:47 12/25/18 22:00 12/25/18 22:40 Urine Collection Type Void Urine Color Denise Urine Clarity Cloudy Urine pH 5.5 Urine Specific Dougherty 1.020 Urine Protein 100 mg/dL (NEG-TRACE) Urine Glucose (UA) Negative mg/dL (NEG) Urine Ketones (Stick) 40 mg/dL (NEG) Urine Blood Large (NEG) Urine Nitrite Negative (NEG) Urine Bilirubin Small (NEG) Urine Urobilinogen Dipstick 1.0 mg/dL (0.2 mg/dL) Urine Leukocyte Esterase Small (NEG) Urine RBC 11-20 /HPF (0-2) Urine WBC 11-20 /HPF (0-4) Urine Squamous Epithelial Cells Mod /LPF Urine Bacteria Moderate /HPF (0-FEW) Urine Mucus Mod /LPF Urine Opiates Screen Neg (NEG) Urine Methadone Screen Neg (NEG) Urine Barbiturates Neg (NEG) Urine Phencyclidine Screen Neg (NEG) Urine Amphetamine/Methamphetamine Neg (NEG) Urine Benzodiazepines Screen Neg (NEG) Urine Cocaine Screen Neg (NEG) Urine Cannabinoids Screen Pos (NEG) Urine Ethyl Alcohol Neg (NEG) POC Urine HCG, Qualitative Hcg positive (Negative) White Blood Count 4.8 x10^3/uL (4.0-11.0) Red Blood Count 5.02 x10^6/uL (3.50-5.40) Hemoglobin 12.9 g/dL (12.0-15.5) Hematocrit 39.0 % (36.0-47.0) Mean Corpuscular Volume 78 fL (79-100) L Mean Corpuscular Hemoglobin 26 pg (25-35) Mean Corpuscular Hemoglobin Concent 33 g/dL (31-37) Red Cell Distribution Width 16.4 % (11.5-14.5) H Platelet Count 260 x10^3/uL (140-400) Neutrophils (%) (Auto) 63 % (31-73) Lymphocytes (%) (Auto) 29 % (24-48) Monocytes (%) (Auto) 7 % (0-9) Eosinophils (%) (Auto) 0 % (0-3) Basophils (%) (Auto) 1 % (0-3) Neutrophils # (Auto) 3.0 x10^3/uL (1.8-7.7) Lymphocytes # (Auto) 1.4 x10^3/uL (1.0-4.8) Monocytes # (Auto) 0.3 x10^3/uL (0.0-1.1) Eosinophils # (Auto) 0.0 x10^3/uL (0.0-0.7) Basophils # (Auto) 0.0 x10^3/uL (0.0-0.2) Sodium Level 136 mmol/L (136-145) Potassium Level 4.4 mmol/L (3.5-5.1) Chloride Level 102 mmol/L (98-107) Carbon Dioxide Level 23 mmol/L (21-32) Anion Gap 11 (6-14) Blood Urea Nitrogen 15 mg/dL (7-20) Creatinine 0.9 mg/dL (0.6-1.0) Estimated GFR (Cockcroft-Gault) 86.2 BUN/Creatinine Ratio 17 (6-20) Glucose Level 74 mg/dL (70-99) Calcium Level 8.8 mg/dL (8.5-10.1) Total Bilirubin 0.6 mg/dL (0.2-1.0) Aspartate Amino Transferase (AST) 15 U/L (15-37) Alanine Aminotransferase (ALT) 7 U/L (14-59) L Alkaline Phosphatase 66 U/L (46-116) Total Protein 8.6 g/dL (6.4-8.2) H Albumin 3.2 g/dL (3.4-5.0) L Albumin/Globulin Ratio 0.6 (1.0-1.7) L Laboratory Tests 12/25/18 22:00 Laboratory Tests 12/25/18 22:40 (ENDER PETERSON MD) EKG EKG [] (DERRICK GARCIA APRN) Radiology/Procedures Radiology/Procedures [] (DERRICK GARCIA APRN) Course & Med Decision Making Course & Med Decision Making Abdomen is soft and nontender. Skin pink warm and dry. Lips are chapped but mucus membranes are moist. Vital signs wnl. Alert and oriented. Ambulatory with steady gait. Skin pink warm and dry. Denies back pain or fever. CVA tenderness. UTI and positive test. Patient states she does have a OB she can follow up with. She is given 2 L of normal saline and Zofran. I will give her prescription of Zofran [] (DERRICK GARCIA APRN) Dragon Disclaimer Dragon Disclaimer This electronic medical record was generated, in whole or in part, using a voice recognition dictation system. (DERRICK GARCIA APRN) Departure Departure Impression: Primary Impression: Nausea and vomiting during Disposition: 01 HOME, SELF-CARE Condition: STABLE Referrals: CALLIE CADENA MD (PCP) Patient Instructions: ABCs of , Nausea and Vomiting Additional Instructions: Follow up with your OB as soon as possible. Scripts Cephalexin (KEFLEX) 500 Mg Capsule 1 CAP PO BID for 7 Days, #14 CAP 0 Refills Prov: DERRICK GARCIA APRN 12/25/18 Ondansetron (ONDANSETRON ODT) 4 Mg Tab.rapdis 1 TAB PO PRN Q6-8HRS, #30 TAB Prov: DERRICK GARCIA APRN 12/25/18 DERRICK GARCIA APRN Dec 25, 2018 21:21 ENDER PETERSON MD Dec 26, 2018 18:19
[2018-12-25] MEDS ORDERED: CEPH-264 PO (21:23)
[2018-12-25] MEDS ORDERED: ONDANSETRON PF 4 MG/2 ML VIAL. IV ONE (21:30)
[2018-12-25] MEDS ORDERED: IV NORMAL SALINE 1000ML BAG 1,000 ML IV ONE ×2 (21:30)
[2018-12-25 22:12] LABS: BASO % 1 % (0-3); EOS % 0 % (0-3); HEMOGLOBIN 12.9 g/dL (12.0-15.5); LYMPH # 1.4 x10^3/uL (1.0-4.8); LYMPH % 29 % (24-48); MEAN CORPUSCULAR HEMOGLOBIN 26 pg (25-35); MEAN CORPUSCULAR HGB CONC 33 g/dL (31-37); MEAN CORPUSCULAR VOLUME 78 fL (79-100); MONO # 0.3 x10^3/uL (0.0-1.1); MONO % 7 % (0-9); NEUT % 63 % (31-73); PLATELET COUNT 260 x10^3/uL (140-400); RED BLOOD COUNT 5.02 x10^6/uL (3.50-5.40); RED CELL DISTRIBUTION WIDTH 16.4 % (11.5-14.5); WHITE BLOOD COUNT 4.8 x10^3/uL (4.0-11.0)
[2018-12-25 22:30] VITALS: BP 118/70
[2018-12-25 22:56] LABS: CALCIUM 8.8 mg/dL (8.5-10.1); CREATININE 0.9 mg/dL (0.6-1.0); GFR 86.2; POTASSIUM 4.4 mmol/L (3.5-5.1)
[2018-12-25 23:02] LABS: ALBUMIN 3.2 g/dL (3.4-5.0); ALBUMIN/GLOBULIN RATIO 0.6 (1.0-1.7); TOTAL BILIRUBIN 0.6 mg/dL (0.2-1.0); TOTAL PROTEIN 8.6 g/dL (6.4-8.2)
== END 2018-12-26 00:30 | disposition home or self-care (01) ==
LOC: ER 20:39
DX: O21.9 Vomiting of pregnancy, unspecified (principal); Z3A.01 Less than 8 weeks gestation of pregnancy
CPT/HCPCS: 36415; 80053; 80307; 81001; 81025; 85025; 87086; 96361; 96374; 99285; J2405; J7030; 99284-25

== ENCOUNTER 2019-08-24 11:27 | Emergency (ER) | payer OTHER ==
[~2019-08-24] VITALS: Ht 157.5 cm; Wt 86.3 kg
[2019-08-24 12:04] VITALS: BP 146/93
[2019-08-24] MEDS ORDERED: KETOROLAC 60 MG/2 ML VIAL. IM ONE (13:15)
[2019-08-24] MEDS ORDERED: ORPHENADRINE CITRATE 60 MG/2 ML VIAL. IM ONE (13:15)
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
[2019-08-24] MEDS ORDERED: PRED50TA PO (14:15)
[2019-08-24] MEDS ORDERED: CYCL10TA2 PO (14:15)
== END 2019-08-24 14:25 | disposition home or self-care (01) ==
LOC: ER 11:27
DX: S46.812A Strain of other muscles, fascia and tendons at shoulder and upper arm level, left arm, initial encounter (principal); M54.2 Cervicalgia; M19.90 Unspecified osteoarthritis, unspecified site; Z98.890 Other specified postprocedural states; Z79.899 Other long term (current) drug therapy; V89.2XXA Person injured in unspecified motor-vehicle accident, traffic, initial encounter; Y93.89 Activity, other specified; Y92.488 Other paved roadways as the place of occurrence of the external cause; Y99.8 Other external cause status
CPT/HCPCS: 81025; 96372; 99284; J1885; J2360

== ENCOUNTER 2020-07-05 10:41 | Emergency (ER) | payer OTHER ==
[~2020-07-05] VITALS: Ht 157.5 cm; Wt 94.5 kg
[~2020-07-05 10:41] MED LIST changes: +CYCL10TA2 PO; +PRED50TA PO
[2020-07-05] MEDS ORDERED: IV NORMAL SALINE 1000ML BAG 1,000 ML IV SCH (11:00)
--- NOTE | 2020-07-05 11:14 | PHYS DOC ---
Past Medical History Past Medical History: Arthritis, Other Additional Past Medical Histor: Lupus; RA, Stomach ulcer, hernia Past Surgical History: , Other Additional Past Surgical Histo: laparoscopic surg nos, 2006 Smoking Status: Never Smoker Alcohol Use: None Drug Use: None General Adult EDM: Chief Complaint: VAGINAL BLEEDING HPI: HPI: Patient is a 34 year old female who presents with states 3 days ago on a Friday she began having left lower quadrant sharp intermittent pain and back pain with small bowel vaginal bleeding that only lasted on Friday. She states she had a couple small clots but nothing big. She currently rates her pain a 5 out of 10 and states it is more of a backache at this time. She denies any concerns or sexually-transmitted diseases. She states on this past Friday she took a test and was positive. Her last menstrual period was May 04 but also states that her periods can be inconsistent. Patient has 2 living healthy children, has had 2 miscarriages. She has had C-sections. She has a history of lupus, RA, stomach ulcers, hernia. 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 Review of Systems: Review of Systems: Constitutional: Denies fever or chills. [] Eyes: Denies change in visual acuity. [] HENT: Denies nasal congestion or sore throat. [] Respiratory: Denies cough or shortness of breath. [] Cardiovascular: Denies chest pain or edema. [] GI: + Left lower quadrant abdominal pain, denies nausea, vomiting, bloody stools or diarrhea. [] : Denies dysuria. + 1 day of vaginal bleeding [] Musculoskeletal: + Bilateral lower back pain or denies joint pain. [] Integument: Denies rash. [] Neurologic: Denies headache, focal weakness or sensory changes. [] Endocrine: Denies polyuria or polydipsia. [] Lymphatic: Denies swollen glands. [] Psychiatric: Denies depression or anxiety. [] Heart Score: C/O Chest Pain: No Risk Factors: Risk Factors: DM, Current or recent (<one month) smoker, HTN, HLP, family history of CAD, obesity. Risk Scores: Score 0 - 3: 2.5% MACE over next 6 weeks - Discharge Home Score 4 - 6: 20.3% MACE over next 6 weeks - Admit for Clinical Observation Score 7 - 10: 72.7% MACE over next 6 weeks - Early Invasive Strategies Current Medications: Current Medications Medications (Trade) Dose Ordered Sig/Ken Start Time Stop Time Status Last Admin Dose Admin Acetaminophen (Tylenol) 650 mg 1X ONCE 07/05/20 11:15 07/05/20 11:16 Sodium Chloride 1,000 ml @ 1,000 mls/hr Q1H 07/05/20 11:00 07/05/20 11:59 Allergies: Allergies: Allergies Coded Allergies Type Severity Reaction Last Updated Verified No Known Drug Allergies 05/05/13 No Physical Exam: PE: Constitutional: Well developed, well nourished, no acute distress, non-toxic appearance. [] HENT: Normocephalic, atraumatic, bilateral external ears normal, oropharynx moist, no oral exudates, nose normal. [] Eyes: PERRLA, EOMI, conjunctiva normal, no discharge. [] Neck: Normal range of motion, no tenderness, supple, no stridor. [] Cardiovascular:Heart rate regular rhythm, no murmur [] Lungs & Thorax: Bilateral breath sounds clear to auscultation [] Abdomen: Bowel sounds normal, soft, left lower quadrant tenderness, no masses, no pulsatile masses. [] Skin: Warm, dry, no erythema, no rash. [] Back: No tenderness, no CVA tenderness. [] Extremities: No tenderness, no cyanosis, no clubbing, ROM intact, no edema. [] Neurologic: Alert and oriented X 3, normal motor function, normal sensory function, no focal deficits noted. [] Psychologic: Affect normal, judgement normal, mood normal. [] Current Patient Data: Vital Signs: Vital Signs Date Time Temp Pulse Resp B/P (MAP) Pulse Ox O2 Delivery O2 Flow Rate FiO2 07/05/20 10:52 97.9 68 14 135/78 (97) 100 Room Air 97.9 EKG: EKG: [] Radiology/Procedures: Radiology/Procedures: [] Impression: [facility] [address] [place] [address] IMAGING REPORT Signed PATIENT: MC AVINA ACCOUNT: [id number] : 1985 LOCATION: ER AGE: 34 SEX: F EXAM STATUS: REG ER ORD. PHYSICIAN: DERRICK GARCIA APRN REASON: , pelvic pain PROCEDURE: OB <14 WKS W/TV Obstetrical ultrasound first trimester 07/05/2020. Reason for exam: Pelvic pain. TECHNIQUE: Transabdominal and transvaginal scanning was performed. Transvaginal scanning was added to better visualize the intrauterine structures. There is a fluid-filled structure in the endometrial lining consistent with a gestational sac. There is some debris internally, and possibly an embryonic pole, although this is not definite. Estimated age of the suspected embryo would be about 7 weeks 0 days, based on crown-rump length. However, no cardiac activity is seen, and there is no visible yolk sac. There is no adjacent hemorrhage. A small fibroid is visible anteriorly. The right ovary is normal in size. It contains a small cyst measuring about 2 cm. The left ovary is not identified as a normal structure. There is a large multiloculated cystic structure to the left and behind the uterus. This has some thick internal septa. It measures about 12.4 x 5.7 x 10.3 cm. No significant free fluid is seen. IMPRESSION: There is a gestational sac in the uterus. There is no well-formed embryo or yolk sac. Findings are concerning for embryonic demise. There is a large multiloculated cystic structure adjacent to the uterus. This may involve the left ovary. Etiology is uncertain. Cystic ovarian neoplasm is a consideration. No similar structure was seen on previous exam of about 2 years ago. Given lack of significant surrounding free fluid or hypervascularity, an infectious process such as tubo-ovarian abscess seems less likely. Hyperstimulation of the ovary is possible, although usually would be bilateral. Ovarian torsion is a consideration, although, again, would typically be seen wi th more free fluid. Electronically signed by: Seng Tom Jr., MD (07/05/2020 12:05 PM) [id number] DICTATED and SIGNED BY: SENG TOM Jr, MD DATE: 07/05/20 [id number] 0 Course & Med Decision Making: Course & Med Decision Making Pertinent Labs and Imaging studies reviewed. (See chart for details) See HPI. Alert and oriented x4. Ambulatory with steady gait. Abdomen is soft but slightly tender in the left lower quadrant. She denies any constipation or urinary symptoms. She denies chest pain, fever, shortness of breath, recent illness, concerns for sexually transmitted diseases, vaginal discharge, nausea, vomiting, diarrhea, constipation, headache, dizziness. Pelvic Exam: Integration Engineer present Abdomen: Left lower quadrant External Genitalia: Normal Skin Speculum: Normal vaginal mucosa, normal cervical discharge, cervical os closed Bimanual: No adnexal masses or tenderness, No CMT I spoken to Dr. Dixon concerning findings on OB ultrasound. She states that the patient can go home and take Tylenol and give her strict restrictions and to follow-up with her OB doctor as scheduled. Patient's blood type is B-. She will get RhoGam shot. I will give her a copy of her ultrasound and her hCG level today so she can give to her doctor for follow-up. [] Dragon Disclaimer: Dragon Disclaimer: This electronic medical record was generated, in whole or in part, using a voice recognition dictation system. Departure Departure Impression: Primary Impression: Threatened miscarriage Disposition: 01 HOME / SELF CARE / HOMELESS Condition: STABLE Referrals: CALLIE CADENA MD (PCP) CEE COLLINS MD Patient Instructions: Threatened Miscarriage Additional Instructions: Follow-up with your OB as soon as possible. Keep your scheduled appointment. If begin having heavy bleeding and increased pain before you get into see your OB return to the hospital. If you begin going through more than 1 pad an hour return to the hospital. Take Tylenol for your pain. Drink plenty of fluids. DERRICK GARCIA APRN July 05, 2020 11:14
[2020-07-05] MEDS ORDERED: ACETAMINOPHEN 325 MG TABLET. PO ONE (11:15)
[2020-07-05 11:18] LABS: BILIRUBIN,URINE NEGATIVE (NEG); CLARITY,URINE CLEAR; COLOR,URINE YELLOW; NITRITE,URINE NEGATIVE (NEG); PROTEIN,URINE NEGATIVE (NEG-TRACE); UROBILINOGEN,URINE 0.2 mg/dL (0.2 mg/dL)
[2020-07-05 11:37] LABS: BASO % 1 % (0-3); EOS # 0.1 x10^3/uL (0.0-0.7); EOS % 2 % (0-3); HEMATOCRIT 31.7 % (36.0-47.0); HEMOGLOBIN 10.5 g/dL (12.0-15.5); LYMPH # 1.2 x10^3/uL (1.0-4.8); LYMPH % 34 % (24-48); MEAN CORPUSCULAR HEMOGLOBIN 26 pg (25-35); MEAN CORPUSCULAR HGB CONC 33 g/dL (31-37); MEAN CORPUSCULAR VOLUME 78 fL (79-100); MONO # 0.2 x10^3/uL (0.0-1.1); MONO % 6 % (0-9); NEUT % 57 % (31-73); PLATELET COUNT 243 x10^3/uL (140-400); RED BLOOD COUNT 4.08 x10^6/uL (3.50-5.40); RED CELL DISTRIBUTION WIDTH 15.1 % (11.5-14.5); WHITE BLOOD COUNT 3.6 x10^3/uL (4.0-11.0)
[2020-07-05 11:41] LABS: BACTERIA,URINE 0 /HPF (0-FEW); WBC,URINE 0 /HPF (0-4)
[2020-07-05 11:50] LABS: CALCIUM 8.2 mg/dL (8.5-10.1); CREATININE 0.8 mg/dL (0.6-1.0); GFR 98.2; POTASSIUM 4.1 mmol/L (3.5-5.1)
[2020-07-05 11:56] LABS: ALBUMIN/GLOBULIN RATIO 0.7 (1.0-1.7); TOTAL BILIRUBIN 0.3 mg/dL (0.2-1.0); TOTAL PROTEIN 7.5 g/dL (6.4-8.2)
--- NOTE | 2020-07-05 12:07 | RAD ---
Obstetrical ultrasound first trimester 07/05/2020. Reason for exam: Pelvic pain. TECHNIQUE: Transabdominal and transvaginal scanning was performed. Transvaginal scanning was added to better visualize the intrauterine structures. There is a fluid-filled structure in the endometrial lining consistent with a gestational sac. There is some debris internally, and possibly an embryonic pole, although this is not definite. Estimated a ge of the suspected embryo would be about 7 weeks 0 days, based on crown-rump length. However, no car diac activity is seen, and there is no visible yolk sac. There is no adjacent hemorrhage. A small fib roid is visible anteriorly. The right ovary is normal in size. It contains a small cyst measuring about 2 cm. The left ovary is n ot identified as a normal structure. There is a large multiloculated cystic structure to the left and behind the uterus. This has some thick internal septa. It measures about 12.4 x 5.7 x 10.3 cm. No si gnificant free fluid is seen. IMPRESSION: There is a gestational sac in the uterus. There is no well-formed embryo or yolk sac. Fin dings are concerning for embryonic demise. There is a large multiloculated cystic structure adjacent to the uterus. This may involve the left ov chiki. Etiology is uncertain. Cystic ovarian neoplasm is a consideration. No similar structure was seen on previous exam of about 2 years ago. Given lack of significant surrounding free fluid or hypervasc ularity, an infectious process such as tubo-ovarian abscess seems less likely. Hyperstimulation of th e ovary is possible, although usually would be bilateral. Ovarian torsion is a consideration, althoug h, again, would typically be seen with more free fluid. Electronically signed by: Alec Tom Jr., MD (07/05/2020 12:05 PM) [id number]
[2020-07-05 14:24] VITALS: BP 137/63
[2020-07-06 15:38] LABS: GC PROBE Negative (Negative)
== END 2020-07-05 14:57 | disposition home or self-care (01) ==
LOC: ER 10:41
DX: O20.0 Threatened abortion (principal); Z3A.01 Less than 8 weeks gestation of pregnancy
CPT/HCPCS: 36415; 36430; 76801; 76817; 80053; 81001; 81025; 83690; 84702; 85025; 86850; 86900; 86901; 87491; 87591; 96360; 99285; J7030; Q0111

== ENCOUNTER 2020-08-25 18:04 | Emergency (ER) | payer OTHER ==
[~2020-08-25] VITALS: Ht 157.5 cm; Wt 93.3 kg
--- NOTE | 2020-08-25 18:45 | PHYS DOC ---
Past Medical History Past Medical History: Arthritis, Other Additional Past Medical Histor: Lupus; RA, Stomach ulcer, hernia Past Surgical History: , Other Additional Past Surgical Histo: laparoscopic surg nos, 2006 Smoking Status: Never Smoker Alcohol Use: None Drug Use: None General Adult EDM: Chief Complaint: chest pain HPI: HPI: Patient is a 34 year old female who presented to ER due to left-sided chest pain, sharp and stabbing in nature for 3 days. Patient just flew back home from [place] 3 days ago. Patient denies any cough or fever. Patient denies any abdominal pain, no nausea vomiting. Patient has history of lupus. She has no history of blood clot disorder. Patient said chest pain is worse with breathing or cough. Review of Systems: Review of Systems: Constitutional: Denies fever or chills. [] Eyes: Denies change in visual acuity. [] HENT: Denies nasal congestion or sore throat. [] Respiratory: Denies cough or shortness of breath. [] Cardiovascular: Positive for chest pain, no edema GI: Denies abdominal pain, nausea, vomiting, bloody stools or diarrhea. [] : Denies dysuria. [] Musculoskeletal: Denies back pain or joint pain. [] Integument: Denies rash. [] Neurologic: Denies headache, focal weakness or sensory changes. [] Endocrine: Denies polyuria or polydipsia. [] Lymphatic: Denies swollen glands. [] Psychiatric: Denies depression or anxiety. [] Heart Score: C/O Chest Pain: Yes HEART Score for Chest Pain: HEART Score for Chest Pain Response (Comments) Value History Slighlty/Non-Suspicious 0 ECG Normal 0 Age < 45 0 Risk Factors No Risk Factors 0 Troponin < Normal Limit 0 Total 0 Risk Factors: Risk Factors: DM, Current or recent (<one month) smoker, HTN, HLP, family history of CAD, obesity. Risk Scores: Score 0 - 3: 2.5% MACE over next 6 weeks - Discharge Home Score 4 - 6: 20.3% MACE over next 6 weeks - Admit for Clinical Observation Score 7 - 10: 72.7% MACE over next 6 weeks - Early Invasive Strategies Allergies: Allergies: Allergies Coded Allergies Type Severity Reaction Last Updated Verified No Known Drug Allergies 05/05/13 No Physical Exam: PE: Constitutional: Well developed, well nourished, no acute distress, non-toxic appearance. [] HENT: Normocephalic, atraumatic, bilateral external ears normal, oropharynx moist, no oral exudates, nose normal. [] Eyes: PERRLA, EOMI, conjunctiva normal, no discharge. [] Neck: Normal range of motion, no tenderness, supple, no stridor. [] Cardiovascular:Heart rate regular rhythm, no murmur [] Lungs & Thorax: Bilateral breath sounds clear to auscultation [] Abdomen: Bowel sounds normal, soft, no tenderness, no masses, no pulsatile masses. [] Skin: Warm, dry, no erythema, no rash. [] Back: No tenderness, no CVA tenderness. [] Extremities: No tenderness, no cyanosis, no clubbing, ROM intact, no edema. [] Neurologic: Alert and oriented X 3, normal motor function, normal sensory function, no focal deficits noted. [] Psychologic: Affect normal, judgement normal, mood normal. [] Current Patient Data: Labs: Laboratory Tests Test 08/25/20 18:42 08/25/20 18:47 08/25/20 19:00 08/25/20 20:41 Urine Collection Type Unknown Urine Color Yellow Urine Clarity Clear Urine pH 5.5 Urine Specific [place] <=1.005 Urine Protein Negative mg/dL Urine Glucose (UA) Negative mg/dL Urine Ketones (Stick) Negative mg/dL Urine Blood Large Urine Nitrite Negative Urine Bilirubin Negative Urine Urobilinogen Dipstick 0.2 mg/dL Urine Leukocyte Esterase Negative Urine RBC 11-20 /HPF Urine WBC 0 /HPF Urine Squamous Epithelial Cells Few /LPF Urine Bacteria Few /HPF Bedside Urine HCG, Qualitative Hcg negative Sodium Level 136 mmol/L Potassium Level 4.3 mmol/L Chloride Level 102 mmol/L Carbon Dioxide Level 23 mmol/L Anion Gap 11 Blood Urea Nitrogen 14 mg/dL Creatinine 0.9 mg/dL Estimated GFR (Cockcroft-Gault) 85.7 BUN/Creatinine Ratio 16 Glucose Level 85 mg/dL Calcium Level 8.9 mg/dL Magnesium Level 2.3 mg/dL Total Bilirubin 0.5 mg/dL Aspartate Amino Transf (AST/SGOT) 18 U/L Alanine Aminotransferase (ALT/SGPT) 13 U/L Alkaline Phosphatase 80 U/L Troponin I Quantitative < 0.017 ng/mL [id number] Natriuretic Peptide 161 pg/mL Total Protein 8.6 g/dL Albumin 3.2 g/dL Albumin/Globulin Ratio 0.6 Lipase 121 U/L Serum Test, Qualitative Negative White Blood Count 5.8 x10^3/uL Red Blood Count 3.76 x10^6/uL Hemoglobin 9.7 g/dL Hematocrit 28.7 % Mean Corpuscular Volume 77 fL Mean Corpuscular Hemoglobin 26 pg Mean Corpuscular Hemoglobin Concent 34 g/dL Red Cell Distribution Width 15.4 % Platelet Count 328 x10^3/uL Neutrophils (%) (Auto) 77 % Lymphocytes (%) (Auto) 16 % Monocytes (%) (Auto) 5 % Eosinophils (%) (Auto) 1 % Basophils (%) (Auto) 0 % Neutrophils # (Auto) 4.5 x10^3/uL Lymphocytes # (Auto) 0.9 x10^3/uL Monocytes # (Auto) 0.3 x10^3/uL Eosinophils # (Auto) 0.1 x10^3/uL Basophils # (Auto) 0.0 x10^3/uL Test 08/25/20 21:07 SARS-CoV-2 Antigen (Rapid) Negative Current Medications Medications (Trade) Dose Ordered Sig/Ken Route PRN Reason Start Time Stop Time Status Last Admin Dose Admin Ketorolac Tromethamine (Toradol 30mg Vial) 30 mg 1X ONCE IVP 08/26/20 00:00 08/26/20 00:01 UNV EKG: EKG: EKG was done at 1841, heart rate of 90 bpm, sinus rhythm, no ST segment elevation. Normal axis Radiology/Procedures: Radiology/Procedures: [][facility] [address] [place] [address] IMAGING REPORT Signed PATIENT: MC AVINA ACCOUNT: [id number] : 1985 LOCATION: ER AGE: 34 SEX: F EXAM STATUS: PRE ER ORD. PHYSICIAN: DOROTHEA HERNANDEZ DO REASON: chest pain PROCEDURE: PORTABLE CHEST 1V Exam: Chest one view INDICATION: Chest pain TECHNIQUE: Frontal view of the chest Comparisons: None FINDINGS: The cardiomediastinal silhouette and pulmonary vessels are within normal limits. The lung and pleural spaces are clear. IMPRESSION: No acute cardiopulmonary process. Electronically signed by: Kristi Garcia MD (08/25/2020 7:31 PM) [facility] DICTATED and SIGNED BY: KRISTI GARCIA MD DATE: 08/25/[id number] 0 [facility] [address] [place] [address] IMAGING REPORT Signed PATIENT: MC AVINA ACCOUNT: [id number] : 1985 LOCATION: ER AGE: 34 SEX: F EXAM STATUS: REG ER ORD. PHYSICIAN: DOROTHEA HERNANDEZ DO REASON: CHEST PAIN, SOA, HX OF LUPUS PROCEDURE: LUNG VENT/PERFUSION SCAN(VQ) NUCLEAR MEDICINE VENTILATION PERFUSION SCAN History: Shortness of air Comparison: Concurrent chest radiograph Technique: Ventilation portion performed after inhalation from a vial containing 13 mCi technetium 99m DTPA aerosol. Perfusion portion performed after intraveno us administration of 5.5 mCi Technetium 99m MAA. Multiple projection planar images of the lungs were obtained. Findings: Ventilation images appear within normal limits. Perfusion images demonstrate no perfusion defects. IMPRESSION: No mismatched defect to indicate pulmonary embolism. Electronically signed by: Barrie Merino MD (08/25/2020 11:42 PM) [facility] DICTATED and SIGNED BY: BARRIE MERINO MD DATE: 08/25/20 [id number] 0 Course & Med Decision Making: Course & Med Decision Making Pertinent Labs and Imaging studies reviewed. (See chart for details) Patient is a 34-year-old female who presented to ER due to chest pain with cough or deep breathing, consistent with pleurisy. Chest x-ray is did not show any evidence of pneumonia. V/Q scan showed no evidence of PE. Patient will be discharged home with anti-inflammatory medication Dragon Disclaimer: Dragon Disclaimer: This electronic medical record was generated, in whole or in part, using a voice recognition dictation system. Departure Departure Impression: Primary Impression: Pleurisy Disposition: 01 HOME / SELF CARE / HOMELESS Condition: IMPROVED Referrals: CALLIE CADENA MD (PCP) Follow up with your doctor as needed next week Patient Instructions: Pleurisy Additional Instructions: Thank you for visiting our Emergency Department. We appreciate you trusting us with your care. If any additional problems come up don't hesitate to return to visit us. Please follow up with your primary care provider so they can plan additional care if needed and know about the problem that you had. If symptoms worsen come back to the Emergency Department. Any concerning symptoms that start such as chest pain, shortness of air, weakness or numbness on one side of the body, running high fevers or any other concerning symptoms return to the ER. Scripts Naproxen Sodium (ANAPROX DS) 550 Mg Tablet 1 TAB PO BID PRN for PAIN for 15 Days, #30 TAB 0 Refills Prov: DOROTHEA HERNANDEZ DO 08/26/20 DOROTHEA HERNANDEZ DO Aug 25, 2020 18:45
[2020-08-25 18:50] LABS: BILIRUBIN,URINE NEGATIVE (NEG); CLARITY,URINE CLEAR; COLOR,URINE YELLOW; NITRITE,URINE NEGATIVE (NEG); PH,URINE 5.5 (<5.0-8.0); PROTEIN,URINE NEGATIVE (NEG-TRACE); UROBILINOGEN,URINE 0.2 mg/dL (0.2 mg/dL)
[2020-08-25 18:57] LABS: BACTERIA,URINE FEW /HPF (0-FEW); WBC,URINE 0 /HPF (0-4)
--- NOTE | 2020-08-25 19:01 | EKG ---
[facility] [address] [place] [address] Test Date: 2020-08-25 Test Time: 18:41:49 Pat Name: MC AVINA Department: Room: Gender: F [employer]: : 1985 Requested By: DOROTHEA HERNANDEZ Order Number: [id number] Reading MD: Javed Horne Measurements Intervals [place] Rate: 90 P: 37 MD: 152 QRS: 10 QRSD: 78 T: 39 QT: 338 QTc: 417 Interpretive Statements SINUS RHYTHM NORMAL ECG RI6.02 No previous ECG available for comparison Electronically Signed On 08-30-2020 12:35:34 CDT by Javed Horne
[2020-08-25 19:25] LABS: PREG TEST PT QUAL NEGATIVE (NEG)
[2020-08-25 19:29] LABS: CALCIUM 8.9 mg/dL (8.5-10.1); CREATININE 0.9 mg/dL (0.6-1.0); GFR 85.7; POTASSIUM 4.3 mmol/L (3.5-5.1)
[2020-08-25 19:34] LABS: ALBUMIN 3.2 g/dL (3.4-5.0); ALBUMIN/GLOBULIN RATIO 0.6 (1.0-1.7); MAGNESIUM 2.3 mg/dL (1.8-2.4); TOTAL BILIRUBIN 0.5 mg/dL (0.2-1.0); TOTAL PROTEIN 8.6 g/dL (6.4-8.2)
--- NOTE | 2020-08-25 19:34 | RAD ---
Exam: Chest one view INDICATION: Chest pain TECHNIQUE: Frontal view of the chest Comparisons: None FINDINGS: The cardiomediastinal silhouette and pulmonary vessels are within normal limits. The lung and pleural spaces are clear. IMPRESSION: No acute cardiopulmonary process. Electronically signed by: Kristi Olvera MD (08/25/2020 7:31 PM) [facility]
[2020-08-25 21:24] LABS: BASO % 0 % (0-3); EOS # 0.1 x10^3/uL (0.0-0.7); EOS % 1 % (0-3); HEMATOCRIT 28.7 % (36.0-47.0); HEMOGLOBIN 9.7 g/dL (12.0-15.5); LYMPH # 0.9 x10^3/uL (1.0-4.8); LYMPH % 16 % (24-48); MEAN CORPUSCULAR HEMOGLOBIN 26 pg (25-35); MEAN CORPUSCULAR HGB CONC 34 g/dL (31-37); MEAN CORPUSCULAR VOLUME 77 fL (79-100); MONO # 0.3 x10^3/uL (0.0-1.1); MONO % 5 % (0-9); NEUT # 4.5 x10^3/uL (1.8-7.7); NEUT % 77 % (31-73); PLATELET COUNT 328 x10^3/uL (140-400); RED BLOOD COUNT 3.76 x10^6/uL (3.50-5.40); RED CELL DISTRIBUTION WIDTH 15.4 % (11.5-14.5); WHITE BLOOD COUNT 5.8 x10^3/uL (4.0-11.0)
--- NOTE | 2020-08-25 23:44 | RAD ---
NUCLEAR MEDICINE VENTILATION PERFUSION SCAN History: Shortness of air Comparison: Concurrent chest radiograph Technique: Ventilation portion performed after inhalation from a vial containing 13 mCi technetium 99 m DTPA aerosol. Perfusion portion performed after intravenous administration of 5.5 mCi Technetium 99 m MAA. Multiple projection planar images of the lungs were obtained. Findings: Ventilation images appear within normal limits. Perfusion images demonstrate no perfusion defects. IMPRESSION: No mismatched defect to indicate pulmonary embolism. Electronically signed by: Demian Merino MD (08/25/2020 11:42 PM) [facility]
[2020-08-26] MEDS ORDERED: NAPR-682 PO (00:02)
[2020-08-26 00:03] VITALS: BP 126/72
[2020-08-26] MEDS ORDERED: KETOROLAC 30 MG/ML VIAL. IVP ONE (00:30)
--- NOTE | 2020-08-29 10:56 | NUR ---
IP: Informed pt of negative covid test. Pt verbalized understanding.
== END 2020-08-26 00:18 | disposition home or self-care (01) ==
LOC: ER 18:04
DX: R09.1 Pleurisy (principal); Z20.822 Contact with and (suspected) exposure to COVID-19
CPT/HCPCS: 36415; 71045; 78582; 80053; 81001; 81025; 83690; 83735; 83880; 84484; 84703; 85025; 85379; 87426; 93005; 96374; 99285; A9540; A9558; J1885; U0003; U0005

== ENCOUNTER → 2020-10-05 | Outpatient (CLI) | payer OTHER ==
[~2020-10-05] MED LIST changes: +NAPR-682 PO
[2020-10-05 11:05] LABS: BASO % 0 % (0-3); EOS # 0.1 x10^3/uL (0.0-0.7); EOS % 3 % (0-3); HEMATOCRIT 31.9 % (36.0-47.0); HEMOGLOBIN 10.5 g/dL (12.0-15.5); LYMPH # 1.4 x10^3/uL (1.0-4.8); LYMPH % 33 % (24-48); MEAN CORPUSCULAR HEMOGLOBIN 25 pg (25-35); MEAN CORPUSCULAR HGB CONC 33 g/dL (31-37); MEAN CORPUSCULAR VOLUME 76 fL (79-100); MONO # 0.2 x10^3/uL (0.0-1.1); MONO % 5 % (0-9); NEUT # 2.4 x10^3/uL (1.8-7.7); NEUT % 59 % (31-73); PLATELET COUNT 262 x10^3/uL (140-400); RED BLOOD COUNT 4.22 x10^6/uL (3.50-5.40); RED CELL DISTRIBUTION WIDTH 18.3 % (11.5-14.5); WHITE BLOOD COUNT 4.1 x10^3/uL (4.0-11.0)
[2020-10-05 11:41] LABS: ALBUMIN 3.2 g/dL (3.4-5.0); ALBUMIN/GLOBULIN RATIO 0.6 (1.0-1.7); CALCIUM 8.5 mg/dL (8.5-10.1); GFR 75.9; POTASSIUM 4.4 mmol/L (3.5-5.1); TOTAL BILIRUBIN 0.6 mg/dL (0.2-1.0); TOTAL PROTEIN 8.3 g/dL (6.4-8.2)
[2020-10-05 12:19] LABS: FREE T4 0.96 ng/dL (0.76-1.46); THYROID STIM HORMONE (TSH) 1.323 uIU/mL (0.358-3.74)
== END ==
LOC: LAB 10:38
PROVIDERS: ATTEND Family Medicine
DX: I95.0 Idiopathic hypotension (principal); R53.83 Other fatigue; D64.9 Anemia, unspecified
CPT/HCPCS: 36415; 80053; 82607; 82728; 82746; 83540; 83550; 84439; 84443; 85025